=== PATIENT | male | born 1960 | race African-American/Black ===

== ENCOUNTER 2018-08-01 11:56 | Inpatient (IN) | payer OTHER ==
[2018-08-01 15:57] VITALS: BMI 21.1
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
[2018-08-01] MEDS ORDERED: IBUPROFEN 400 MG TABLET (FP) PO PRN (17:56)
[2018-08-01] MEDS ORDERED: MAGNESIUM HYDROX 2400MG/30ML ORAL SUSPENSION 30 ML CUP PO PRN (17:56)
[2018-08-01] MEDS ORDERED: LOPERAMIDE HCL 2 MG CAPSULE PO PRN (17:56)
[2018-08-01] MEDS ORDERED: ACETAMINOPHEN 325 MG TABLET (FP) PO PRN (17:56)
[2018-08-01] MEDS ORDERED: MAGNESIUM CITRATE 300 ML BOTTLE PO PRN (17:56)
[2018-08-01] MEDS ORDERED: guaiFENesin/D-METHORPHAN HB 10 ML UNIT-DOSE CUPS PO PRN (17:56)
[2018-08-01] MEDS ORDERED: hydrOXYzine PAMOATE 25 MG CAPSULE (FP) PO PRN (17:56)
[2018-08-01] MEDS ORDERED: MENTHOL/PHENOL 1 EACH UD MM PRN (17:56)
[2018-08-01] MEDS ORDERED: P-EPHED 60MG/TRIPROLIDI 2.5MG TABLET PO PRN (17:56)
[2018-08-01] MEDS ORDERED: MAG HYDROX/AL HYDROX/SIMETH 30 ML UNIT-DOSE CUP PO PRN (17:56)
[2018-08-01] MEDS ORDERED: METHADONE HCL 10 MG TABLET (FOR DETOX USE ONLY) PO ONE ×2 (18:30→23:00)
[2018-08-01] MEDS: amLODIPine BESYLATE 5 MG TABLET (FP) PO SCH (18:48)
[2018-08-01] MEDS: diazePAM 5 MG TABLET PO PRN (18:49)
[2018-08-01] MEDS ORDERED: MELATONIN 5 MG TABLETS PO PRN (22:00)
[2018-08-01] MEDS: THIAMINE HCL 100 MG TABLET (FP) PO SCH (22:36)
[2018-08-01 23:13] LABS: URINE APPEARANCE SLCLOUDY; URINE BILIRUBIN NEGATIVE (<2.0 mg/dL); URINE COLOR AMBER; URINE GLUCOSE (UA) NEGATIVE (NEGATIVE); URINE KETONE NEGATIVE (NEGATIVE); URINE LEUK ESTERASE 1+ (NEGATIVE); URINE NITRITE NEGATIVE (NEGATIVE); URINE PROTEIN 2+ (NEGATIVE)
[2018-08-01 23:17] LABS: EPI CELLS RARE /HPF (FEW); URINE HYALINE CAST 2 /lpf; URINE MUCUS FEW
[2018-08-02] MEDS ORDERED: cloNIDine HCL 0.1 MG TABLET PO ONE (07:02)
--- NOTE | 2018-08-02 07:04 | PN ---
S Progress Note Note: Patient's blood pressure is B/P 169/100. Patient is asymptomatic Vital Signs Temperature 97.5 F L 08/02/18 06:15 Pulse Rate 54 L 08/02/18 06:15 Respiratory Rate 18 08/02/18 06:15 Blood Pressure 169/100 08/02/18 06:15 O2 Sat by Pulse Oximetry (%) Action: Clonidine 0.1mg tablet oral ordered
[2018-08-02] MEDS: diazePAM 5 MG TABLET PO PRN ×3 (07:16→22:07)
[2018-08-02 09:56] LABS: HEMATOCRIT 41.9 % (35.4-49); HEMOGLOBIN 13.2 GM/dL (11.7-16.9); MCH 27.1 pg (25.7-33.7); MCHC 31.5 g/dl (32.0-35.9); MEAN PLT VOLUME 10.2 fl (7.5-11.1); PLATELET COUNT 166 K/MM3 (134-434); RBC 4.87 M/mm3 (4.00-5.60); RDW 14.2 % (11.9-15.9); WHITE BLOOD COUNT 3.8 K/mm3 (4.0-10.0)
[2018-08-02] MEDS ORDERED: METHADONE HCL 10 MG TABLET (FOR DETOX USE ONLY) PO ONE (10:00)
[2018-08-02 10:21] LABS: ALBUMIN 3.4 g/dl (3.4-5.0); ALK PHOS 64 U/L (45-117); ANION GAP 7 MMOL/L (8-16); BILIRUBIN,TOTAL 0.6 mg/dL (0.2-1); BLOOD UREA NITROGEN 16 mg/dL (7-18); CALCIUM 8.6 mg/dL (8.5-10.1); CHLORIDE 102 mmol/L (98-107); CO2 33 mmol/L (21-32); GLUCOSE,RANDOM 105 mg/dL (74-106); POTASSIUM 3.7 mmol/L (3.5-5.1); SGOT/AST 34 U/L (15-37); SGPT/ALT 36 U/L (13-61); SODIUM 141 mmol/L (136-145); TOT PROT 6.6 g/dl (6.4-8.2)
[2018-08-02] MEDS: amLODIPine BESYLATE 5 MG TABLET (FP) PO SCH (11:16)
[2018-08-02] MEDS: PRENATAL VITAMINS W/ FOLIC ACID TABLET (FP) PO SCH (11:16)
[2018-08-02] MEDS: NICOTINE 7 MG/24 HOURS TOPICAL PATCH TD SCH (11:17)
--- NOTE | 2018-08-02 12:15 | PN ---
BHS COWS - Scale Resting Pulse: 0= [place] 80 or Below Sweatin= Chills/Flushing Restless Observation: 1= Difficult to Sit Still Pupil Size: 0= Normal to Room Light Bone or Joint Aches: 1= Mild Discomfort Runny Nose/ Eye Tearin= Nasal Congestion GI Upset > 30mins: 1= Stomach Cramp Tremor Observation of Outstretched Hands: 1= Tremor [place], Not Seen Yawning Observation: 0= None Anxiety or Irritability: 1=Feels Anxious/Irritable Goose Flesh Skin: 0=Smooth Skin COWS Score: 7 BHS Progress Note (SOAP) Subjective: pt states is doing well, day #2 of admission- says sleeping was difficult last night, medications are sufficient for withdrawal Sx O: Vital Signs - 24 hr 08/01/18 08/01/18 08/02/18 15:52 19:28 00:30 Temperature 98.4 F 97.8 F Pulse Rate 71 62 Respiratory 18 18 18 Rate Blood Pressure 166/96 148/90 08/02/18 08/02/18 08/02/18 03:30 06:15 07:51 Temperature 97.5 F L Pulse Rate 54 L 62 Respiratory 18 18 Rate Blood Pressure 169/100 143/87 08/02/18 10:18 Temperature 97.4 F L Pulse Rate 58 L Respiratory 16 Rate Blood Pressure 133/83 Laboratory Tests 08/01/18 08/02/18 08/02/18 21:34 07:00 07:00 WBC 3.8 L RBC 4.87 Hgb 13.2 Hct 41.9 MCV 86.0 MCH 27.1 MCHC 31.5 L RDW 14.2 Plt Count 166 MPV 10.2 Sodium 141 Potassium 3.7 Chloride 102 Carbon Dioxide 33 H Anion Gap 7 L BUN 16 Creatinine 1.0 Creat Clearance w eGFR > 60 Random Glucose 105 Calcium 8.6 Total Bilirubin 0.6 AST 34 ALT 36 Alkaline Phosphatase 64 Total Protein 6.6 Albumin 3.4 Urine Color Deana Urine Appearance Slcloudy Urine pH 5.0 Ur Specific [place] 1.030 Urine Protein 2+ H Urine Glucose (UA) Negative Urine Ketones Negative Urine Blood 1+ H Urine Nitrite Negative Urine Bilirubin Negative Urine Urobilinogen 2.0 Ur Leukocyte Esterase 1+ H Urine WBC (Auto) 11 Urine RBC (Auto) 8 Ur Epithelial Cells Rare Hyaline Casts 2 Urine Mucus Few RPR Titer 08/02/18 07:00 WBC RBC Hgb Hct MCV MCH MCHC RDW Plt Count MPV Sodium Potassium Chloride Carbon Dioxide Anion Gap BUN Creatinine Creat Clearance w eGFR Random Glucose Calcium Total Bilirubin AST ALT Alkaline Phosphatase Total Protein Albumin Urine Color Urine Appearance Urine pH Ur Specific [place] Urine Protein Urine Glucose (UA) Urine Ketones Urine Blood Urine Nitrite Urine Bilirubin Urine Urobilinogen Ur Leukocyte Esterase Urine WBC (Auto) Urine RBC (Auto) Ur Epithelial Cells Hyaline Casts Urine Mucus RPR Titer Nonreactive a/p: continue heroin detox protocol- pt stable and doing well
[2018-08-02] MEDS: THIAMINE HCL 100 MG TABLET (FP) PO SCH (22:07)
[2018-08-03] MEDS: diazePAM 5 MG TABLET PO PRN ×2 (09:22→22:03)
[2018-08-03] MEDS ORDERED: METHADONE HCL 5 MG TABLET (FOR DETOX USE ONLY) PO ONE (10:00)
[2018-08-03] MEDS: amLODIPine BESYLATE 5 MG TABLET (FP) PO SCH (10:21)
[2018-08-03] MEDS: NICOTINE 7 MG/24 HOURS TOPICAL PATCH TD SCH (10:22)
[2018-08-03] MEDS: PRENATAL VITAMINS W/ FOLIC ACID TABLET (FP) PO SCH (10:22)
--- NOTE | 2018-08-03 13:37 | PN ---
BHS COWS - Scale Resting Pulse: 1= [place] 81-100 Sweatin= Chills/Flushing Restless Observation: 3= Extraneous Movement Pupil Size: 0= Normal to Room Light Bone or Joint Aches: 1= Mild Discomfort Runny Nose/ Eye Tearin= None GI Upset > 30mins: 1= Stomach Cramp Tremor Observation of Outstretched Hands: 2= Slight Tremor Visible Yawning Observation: 0= None Anxiety or Irritability: 1=Feels Anxious/Irritable Goose Flesh Skin: 0=Smooth Skin COWS Score: 10 BHS Progress Note (SOAP) Subjective: Sweating, chills Objective: 08/03/18 13:35 Last Vital Signs Temp Pulse Resp BP Pulse Ox 97.0 F L 84 18 138/80 08/03/18 09:09 08/03/18 09:09 08/03/18 09:09 08/03/18 09:09 Laboratory Tests 08/01/18 08/02/18 08/02/18 21:34 07:00 07:00 WBC 3.8 L RBC 4.87 Hgb 13.2 Hct 41.9 MCV 86.0 MCH 27.1 MCHC 31.5 L RDW 14.2 Plt Count 166 MPV 10.2 Sodium 141 Potassium 3.7 Chloride 102 Carbon Dioxide 33 H Anion Gap 7 L BUN 16 Creatinine 1.0 Creat Clearance w eGFR > 60 Random Glucose 105 Calcium 8.6 Total Bilirubin 0.6 AST 34 ALT 36 Alkaline Phosphatase 64 Total Protein 6.6 Albumin 3.4 Urine Color Deana Urine Appearance Slcloudy Urine pH 5.0 Ur Specific [place] 1.030 Urine Protein 2+ H Urine Glucose (UA) Negative Urine Ketones Negative Urine Blood 1+ H Urine Nitrite Negative Urine Bilirubin Negative Urine Urobilinogen 2.0 Ur Leukocyte Esterase 1+ H Urine WBC (Auto) 11 Urine RBC (Auto) 8 Ur Epithelial Cells Rare Hyaline Casts 2 Urine Mucus Few RPR Titer 08/02/18 07:00 WBC RBC Hgb Hct MCV MCH MCHC RDW Plt Count MPV Sodium Potassium Chloride Carbon Dioxide Anion Gap BUN Creatinine Creat Clearance w eGFR Random Glucose Calcium Total Bilirubin AST ALT Alkaline Phosphatase Total Protein Albumin Urine Color Urine Appearance Urine pH Ur Specific [place] Urine Protein Urine Glucose (UA) Urine Ketones Urine Blood Urine Nitrite Urine Bilirubin Urine Urobilinogen Ur Leukocyte Esterase Urine WBC (Auto) Urine RBC (Auto) Ur Epithelial Cells Hyaline Casts Urine Mucus RPR Titer Nonreactive Labs reviewed: abnormal UA Assessment: 08/03/18 13:36 Withdrawal symptoms Abnormal UA noted Plan: Continue detox Abnormal UA: encouraged PO water intake, repeat UA
[2018-08-03] MEDS: THIAMINE HCL 100 MG TABLET (FP) PO SCH (22:03)
[2018-08-03 23:26] LABS: URINE APPEARANCE TURBID; URINE BILIRUBIN NEGATIVE (<2.0 mg/dL); URINE COLOR AMBER; URINE GLUCOSE (UA) NEGATIVE (NEGATIVE); URINE KETONE NEGATIVE (NEGATIVE); URINE LEUK ESTERASE NEGATIVE (NEGATIVE); URINE NITRITE NEGATIVE (NEGATIVE); URINE PROTEIN NEGATIVE (NEGATIVE)
[2018-08-04] MEDS ORDERED: METHADONE HCL 5 MG TABLET (FOR DETOX USE ONLY) PO ONE (10:00)
[2018-08-04] MEDS: PRENATAL VITAMINS W/ FOLIC ACID TABLET (FP) PO SCH (10:23)
[2018-08-04] MEDS: diazePAM 5 MG TABLET PO PRN ×2 (10:23→17:34)
[2018-08-04] MEDS: amLODIPine BESYLATE 5 MG TABLET (FP) PO SCH (10:23)
[2018-08-04] MEDS: NICOTINE 7 MG/24 HOURS TOPICAL PATCH TD SCH (10:25)
--- NOTE | 2018-08-04 16:08 | PN ---
BHS Progress Note (SOAP) Subjective: Tremor, sweating, interrupted sleep Objective: 08/04/18 16:06 Last Vital Signs Temp Pulse Resp BP Pulse Ox 97.3 F L 86 18 143/77 08/04/18 14:56 08/04/18 14:56 08/04/18 14:56 08/04/18 14:56 Laboratory Tests 08/01/18 08/02/18 08/02/18 21:34 07:00 07:00 WBC 3.8 L RBC 4.87 Hgb 13.2 Hct 41.9 MCV 86.0 MCH 27.1 MCHC 31.5 L RDW 14.2 Plt Count 166 MPV 10.2 Sodium 141 Potassium 3.7 Chloride 102 Carbon Dioxide 33 H Anion Gap 7 L BUN 16 Creatinine 1.0 Creat Clearance w eGFR > 60 Random Glucose 105 Calcium 8.6 Total Bilirubin 0.6 AST 34 ALT 36 Alkaline Phosphatase 64 Total Protein 6.6 Albumin 3.4 Urine Color Deana Urine Appearance Slcloudy Urine pH 5.0 Ur Specific [place] 1.030 Urine Protein 2+ H Urine Glucose (UA) Negative Urine Ketones Negative Urine Blood 1+ H Urine Nitrite Negative Urine Bilirubin Negative Urine Urobilinogen 2.0 Ur Leukocyte Esterase 1+ H Urine WBC (Auto) 11 Urine RBC (Auto) 8 Ur Epithelial Cells Rare Hyaline Casts 2 Urine Mucus Few RPR Titer 08/02/18 08/03/18 07:00 23:10 WBC RBC Hgb Hct MCV MCH MCHC RDW Plt Count MPV Sodium Potassium Chloride Carbon Dioxide Anion Gap BUN Creatinine Creat Clearance w eGFR Random Glucose Calcium Total Bilirubin AST ALT Alkaline Phosphatase Total Protein Albumin Urine Color Deana Urine Appearance Turbid Urine pH 5.0 Ur Specific [place] 1.025 Urine Protein Negative Urine Glucose (UA) Negative Urine Ketones Negative Urine Blood Negative Urine Nitrite Negative Urine Bilirubin Negative Urine Urobilinogen 2.0 Ur Leukocyte Esterase Negative Urine WBC (Auto) Urine RBC (Auto) Ur Epithelial Cells Hyaline Casts Urine Mucus RPR Titer Nonreactive Labs reviewed Assessment: 08/04/18 16:07 Withdrawal symptoms Plan: Continue detox Encouraged PO water intake
[2018-08-04] MEDS ORDERED: ALBUTEROL SO4 0.083% IH SOL 2.5 MG/3 ML VIAL.NEB. NEB PRN (18:17)
--- NOTE | 2018-08-04 18:54 | PN ---
S Progress Note (SOAP) Subjective: asked by RN to evaluate this 57 y.o. male w/opioid dependence with sudden complaint of weakness and shortness of breath , denies chest pain at this time , states he " feels funny " , and the symptoms begantoday . Denies prior cardiac history . Current meds : norvasc for HTn BP 164/90 P 70 100% RA . Objective: 08/04/18 18:50 wnwd , mild distress Resp : no accessory muscle use , lungs CTA b/l , no wheezing/ rales/ rhonchi CV : RRR S1 S2 no m/r/t 08/04/18 19:20 Vital Signs - 24 hr 08/03/18 08/04/18 08/04/18 20:27 00:30 03:30 Temperature 98.7 F Pulse Rate 78 Respiratory 18 20 18 Rate Blood Pressure 114/62 08/04/18 08/04/18 08/04/18 06:27 06:30 09:11 Temperature 96.4 F L 97.6 F Pulse Rate 56 L 65 Respiratory 18 18 18 Rate Blood Pressure 144/80 138/82 08/04/18 08/04/18 14:56 18:32 Temperature 97.3 F L 97.3 F L Pulse Rate 86 70 Respiratory 18 18 Rate Blood Pressure 143/77 147/86 Assessment: 08/04/18 18:51 Dyspnea - Albuterol x 1 treatment , minimal symptomatic improvement. EKG - abnormal , T wave abnormality , inferior wall ischemia , NSR , left atrial enlargement. Plan: refer pt to [facility] ED for further evaluation and treatment . Patient aware and in agreement. report given to Dr Gallardo nursing staff aware , called for transportation . Patient left via EMS
[2018-08-04] MEDS: THIAMINE HCL 100 MG TABLET (FP) PO SCH (22:37)
[2018-08-05] MEDS ORDERED: METHADONE HCL 10 MG TABLET (FOR DETOX USE ONLY) PO ONE (10:00)
[2018-08-05] MEDS: amLODIPine BESYLATE 5 MG TABLET (FP) PO SCH (10:14)
[2018-08-05] MEDS: PRENATAL VITAMINS W/ FOLIC ACID TABLET (FP) PO SCH (10:14)
[2018-08-05] MEDS: NICOTINE 7 MG/24 HOURS TOPICAL PATCH TD SCH (10:14)
--- NOTE | 2018-08-05 11:39 | EKG ---
Test Reason : Blood Pressure : / mmHG Vent. Rate : 073 BPM Atrial Rate : 073 BPM P-R Int : 138 ms QRS Dur : 100 ms QT Int : 382 ms P-R-T Axes : 083 075 -81 degrees QTc Int : 420 ms NORMAL SINUS RHYTHM VENTRICULAR PRE-EXCITATION, WPW PATTERN TYPE B ABNORMAL ECG NO PREVIOUS ECGS AVAILABLE Confirmed by MIRACLE STAPLES MD ([id number]) on 08/05/2018 11:38:33 AM Referred By: Confirmed By:MIRACLE STAPLES MD
--- NOTE | 2018-08-05 12:29 | PN ---
[facility] Progress Note Note: PATIENT RETURNED FROM [facility] TO [address] [place] [address] THIS MORNING AFTER BEING TRANSFERRED FOR SOB. PATIENT EKG REVIEWED BY [employer] SUPERVISOR AT [facility] AND SHOWS POSSIBLE WPW SYNDROME. 2 SETS OF TROPONIN LEVEL NEGATIVE. PATIENT MONITORED AT [facility] THEN CLEARED TO BE D/C BACK TO [facility]. PATIENT EVALUATED AT BEDSIDE AND DENIES SOB , CHEST PAIN, DIZZINESS AND N/V. Vital Signs Temperature 97.8 F 08/05/18 09:40 Pulse Rate 68 08/05/18 09:40 Respiratory Rate 18 08/05/18 09:40 Blood Pressure 171/96 H 08/05/18 09:40 O2 Sat by Pulse Oximetry (%) Vital Signs Temperature 97.8 F 08/05/18 09:40 Pulse Rate 68 08/05/18 09:40 Respiratory Rate 18 08/05/18 09:40 Blood Pressure 171/96 H 08/05/18 09:40 O2 Sat by Pulse Oximetry (%) Laboratory Tests 08/01/18 08/02/18 08/02/18 21:34 07:00 07:00 WBC 3.8 L RBC 4.87 Hgb 13.2 Hct 41.9 MCV 86.0 MCH 27.1 MCHC 31.5 L RDW 14.2 Plt Count 166 MPV 10.2 Sodium 141 Potassium 3.7 Chloride 102 Carbon Dioxide 33 H Anion Gap 7 L BUN 16 Creatinine 1.0 Creat Clearance w eGFR > 60 Random Glucose 105 Calcium 8.6 Total Bilirubin 0.6 AST 34 ALT 36 Alkaline Phosphatase 64 Total Protein 6.6 Albumin 3.4 Urine Color Deana Urine Appearance Slcloudy Urine pH 5.0 Ur Specific Nenana 1.030 Urine Protein 2+ H Urine Glucose (UA) Negative Urine Ketones Negative Urine Blood 1+ H Urine Nitrite Negative Urine Bilirubin Negative Urine Urobilinogen 2.0 Ur Leukocyte Esterase 1+ H Urine WBC (Auto) 11 Urine RBC (Auto) 8 Ur Epithelial Cells Rare Hyaline Casts 2 Urine Mucus Few RPR Titer 08/02/18 08/03/18 07:00 23:10 WBC RBC Hgb Hct MCV MCH MCHC RDW Plt Count MPV Sodium Potassium Chloride Carbon Dioxide Anion Gap BUN Creatinine Creat Clearance w eGFR Random Glucose Calcium Total Bilirubin AST ALT Alkaline Phosphatase Total Protein Albumin Urine Color Deana Urine Appearance Turbid Urine pH 5.0 Ur Specific Nenana 1.025 Urine Protein Negative Urine Glucose (UA) Negative Urine Ketones Negative Urine Blood Negative Urine Nitrite Negative Urine Bilirubin Negative Urine Urobilinogen 2.0 Ur Leukocyte Esterase Negative Urine WBC (Auto) Urine RBC (Auto) Ur Epithelial Cells Hyaline Casts Urine Mucus RPR Titer Nonreactive PE: ALERT AND ORIENTED X 3 SKIN WARM AND DRY CAR S1S2 RESP CTA BL EXT FULL ROM, NO EDEMA MILDLY ANXIOUS AMB AD ELKE A/P: WITHDRAWAL SX HX OF HTN POSSIBLE WPW CONTINUE DETOX ENCOURAGE ORAL FLUIDS PATIENT ADVISED TO FOLLOW UP WITH PCP WITH 72 HOURS OF D/C FOR ONGOING TREATMENT OF CHRONIC ILLNESSES CONTINUE TO MONITOR CLINICALLY NORVASC ONGOING FOR BP MANAGEMENT
[2018-08-05 13:53] VITALS: TEMP 97.1
[2018-08-05 15:38] VITALS: BP 148/80; PULSE 68
--- NOTE | 2018-08-05 15:51 | DS ---
[facility] Detox Discharge Summary Admission Date: 08/01/18 Discharge Date: 08/05/18 - History Present History: Opioid Dependence - Physical Exam Results Vital Signs: Vital Signs Temperature 97.1 F L 08/05/18 13:51 Pulse Rate 68 08/05/18 15:38 Respiratory Rate 18 08/05/18 13:51 Blood Pressure 148/80 08/05/18 15:38 O2 Sat by Pulse Oximetry (%) - Medication Discharge Medications: Ambulatory Orders Ibuprofen [Motrin -] 400 mg PO QID PRN 08/01/18 Acetaminophen [Tylenol] 650 mg PO Q4H PRN 08/04/18 Albuterol 0.083% Nebulizer Brittany [Ventolin 0.083%] 1 neb NEB QID PRN 08/04/18 Methadone (Detox) [Dolophine -] 10 mg PO ASDIR 08/04/18 Multivitamins [Tab-A-Vit -] 1 tab PO DAILY 08/04/18 Nicotine Patch [Nicoderm Patch -] 1 patch TD DAILY 08/04/18 Thiamine HCl [B-1] 100 mg PO HS 08/04/18 Amlodipine Besylate [Norvasc -] 5 mg PO DAILY 14 Days #14 tablet 08/05/18 - Diagnosis (1) Opioid dependence with withdrawal Current Visit: Yes Status: Acute - AMA Did Patient Leave Against Medical Advice: Yes
--- NOTE | 2018-08-05 15:57 | PN ---
[facility] Progress Note Note: NOTIFIED BY RN THAT PATIENT REQUESTED TO SIGN OUT AMA HE HAS A BUS [place]. PATIENT DID NOT WANT TO SPEAK TO PROVIDER AND PROCEEDED WITH SIGNING OUT AMA. PATIENT MEDICALLY STABLE AND NO SI/HI REPORTED. PATIENT ENCOURAGED BY STAFF TO ATTEND GROUP MEETINGS TO PREVENT RELAPSE AND TO FOLLOW UP WITH PCP WITHIN 72 HOURS OF D/C.
[2018-08-06] MEDS ORDERED: METHADONE HCL 5 MG TABLET (FOR DETOX USE ONLY) PO ONE (06:00)
--- NOTE | 2018-10-25 11:43 | EKG ---
Test Reason : Blood Pressure : / mmHG Vent. Rate : 073 BPM Atrial Rate : 073 BPM P-R Int : 132 ms QRS Dur : 096 ms QT Int : 382 ms P-R-T Axes : 076 070 266 degrees QTc Int : 420 ms NORMAL SINUS RHYTHM POSSIBLE LEFT ATRIAL ENLARGEMENT T WAVE ABNORMALITY, CONSIDER INFEROLATERAL ISCHEMIA ABNORMAL ECG NO PREVIOUS ECGS AVAILABLE Confirmed by Hardik Goodman MD ([id number]) on 10/25/2018 11:43:11 AM Referred By: Confirmed By:Hardik Goodman MD
== END 2018-08-05 16:10 | disposition left against medical advice (07) | DRG 770 ==
LOC: YASAS 11:56 → Y3N 18:06
PROC: HZ2ZZZZ Detoxification Services for Substance Abuse Treatment (ICD-10-PCS; principal; 2018-08-01)
DX: F11.23 Opioid dependence with withdrawal (principal); F14.20 Cocaine dependence, uncomplicated; F17.210 Nicotine dependence, cigarettes, uncomplicated; F20.0 Paranoid schizophrenia; I10 Essential (primary) hypertension; R82.90 Unspecified abnormal findings in urine; Z96.652 Presence of left artificial knee joint
CPT/HCPCS: 36415; 80053; 81003; 81015; 85027; 86593; 93005; 93010; 94640; J0735

== ENCOUNTER 2018-08-04 19:34 | Emergency (ER) | payer OTHER ==
[2018-08-04 19:47] VITALS: TEMP 98.9; BMI 23.3
--- NOTE | 2018-08-04 23:07 | PDOC ---
Attending Attestation - Resident Resident Name: TieshaIftikhar - ED Attending Attestation I have performed the following: I have examined & evaluated the patient, The case was reviewed & discussed with the resident, I agree w/resident's findings & plan, Exceptions are as noted - HPI HPI: 08/04/18 23:06 57yo M hx HTN, asthma, PSA (recent relapse on heroin, has been at [facility] for detox for the last 4 days) presents to the ED with transient SOB that resolved en route to the ED. Pt reports SOB while at rest this afternoon at detox, states it felt like his asthma. He was given a nebulizer treatment with mild improvement but was still having SOB prompting EMS activation. Pt denies associated CP, coughing, fever, chills, diaphoresis, dizziness, LE edema. Currently pt denies any symptoms at all, feels much better and requests DC. Deneis recent headache, weakness, numbness, abd pain. Admits to heroine use 5 days ago, denies recent cocaine or etoh use although he has used in the past. - Physicial Exam PE: 08/04/18 23:21 GENERAL: Awake, alert, and fully oriented, in no acute distress HEAD: No signs of trauma EYES: PERRLA, EOMI, sclera anicteric, conjunctiva clear ENT: Auricles normal inspection, hearing grossly normal, nares patent, oropharynx clear without exudates. Moist mucosa NECK: Normal ROM, supple, no lymphadenopathy, JVD, or masses LUNGS: Breath sounds equal, clear to auscultation bilaterally. No wheezes, and no crackles. No increased WOB. HEART: Regular rate and rhythm, normal S1 and S2, no murmurs, rubs or gallops ABDOMEN: Soft, nontender, normoactive bowel sounds. No guarding, no rebound. No masses EXTREMITIES: Normal range of motion, no edema. No cords, erythema, or tenderness NEUROLOGICAL: Normal speech, cranial nerves intact, 5/5 strength in all 4 extremities, normal sensation to light touch in all 4 extremities, normal cerebellar exam, normal gait, normal tone SKIN: Warm, Dry, normal turgor, no rashes or lesions noted. - Medical Decision Making 08/04/18 23:31 57yo M hx HTN, PSA, asthma presents to the ED with resolved SOB. Vitals unremarkable. Exam unremarkable. EKG with new TWI, also short AL interval, possible WPW? Pt also with old ST depressions inferiorly. DDx includes asthma vs ACS vs PE vs PNA. Pt refusing all work up as he states he feels better and knows nothing is wrong with him. Discussed with pt my concerns re EKG and SOB, he expresses understanding but wants to leave as he feels better. The patient is clinically sober, free from distracting injury, appears to have intact insight and judgment and reason and in my opinion has the capacity to make decisions. The patient presents with SOB. I have explained that I am concerned that this may represent an arrhythmia, heart attack, PE; he has verbalized an understanding of my concerns. I have discussed the need for labs , XR, observation to get more information about potential causes of the patient s SOB. I have told the patient that if they leave and have SOB, they could get much worse, could become critically ill, and could possibly become disabled or . The patient is not willing to undergo a medical work up. He is unwilling to stay overnight for monitoring. He is refusing any further care and is leaving against medical advice. I am unable to convince the patient to stay, I have asked them to return as soon as possible to complete their evaluation. Pt is aware that he can not return to [facility] unless he is medically cleared. I have answered all his questions. 08/05/18 00:09 Pt unable to get a ride to leave the ED. States his belongings are back at [facility] and he has no way of getting there. 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 As such, pt is now agreeable to work up for his resolved SOB. Heart score 3. REmains well appearing, in NAD 08/05/18 02:02 Trop neg Labs CXR pending Trop 2 pending at 4am Signed out to overnight attending Heart Score/ECG Review - History History: Slightly suspicious - Electrocardiogram EKG: Non specific repolarization disturbance - Age Age: 45-65 - Risk Factors Risk Factors Heart Score: Yes Hx Hypertension Based on the list above the patient has:: 1-2 risk factors - Troponin Troponin: </= normal limit - Score Heart Score - Total: 3 #1 08/04/18 23:27 Twelve-lead EKG was performed and reviewed by me. Normal sinus rhythm, rate 73. Normal axis. T-wave inversions and sub-millimeter ST depressions inferiorly. T wave inversions in V4 to V6. Short AL interval. When compared to EKG done earlier today at [facility], no significant changes. When compared to EKG from June 2015, T-wave inversions in V4 to V6 are new
--- NOTE | 2018-08-04 23:17 | PDOC ---
History of Present Illness - General Chief Complaint: Shortness of Breath Stated Complaint: SHORTNESS OF BREATH Time Seen by Provider: 08/04/18 21:39 History Source: Patient Exam Limitations: No Limitations - History of Present Illness Initial Comments: 08/05/18 04:29 57 yo male K[facility] from [facility] Det[facility] for Heroin presents to the ED with 1 day of SOB. Pt states SOB has resolved upon questioning and denies any current complaints. Pt states he wants to go back to detox. Denies CP, palpitations, SOB , abdominal pain, F/C/N/V. Past History - Past Medical History Allergies/Adverse Reactions: Allergies Allergy/AdvReac Type Severity Reaction Status Date / Time No Known Allergies Allergy Verified 08/01/18 17:01 Home Medications: Ambulatory Orders Ibuprofen [Motrin -] 400 mg PO QID PRN 08/01/18 Acetaminophen [Tylenol] 650 mg PO Q4H PRN 08/04/18 Albuterol 0.083% Nebulizer Brittany [Ventolin 0.083%] 1 neb NEB QID PRN 08/04/18 Amlodipine Besylate [Norvasc -] 5 mg PO DAILY 08/04/18 Methadone (Detox) [Dolophine -] 10 mg PO ASDIR 08/04/18 Multivitamins [Tab-A-Vit -] 1 tab PO DAILY 08/04/18 Nicotine Patch [Nicoderm Patch -] 1 patch TD DAILY 08/04/18 Thiamine HCl [B-1] 100 mg PO HS 08/04/18 Anemia: No Asthma: No Cancer: No Cardiac Disorders: No CVA: No COPD: No CHF: No Dementia: No Diabetes: No GI Disorders: No Disorders: No HTN: Yes Hypercholesterolemia: No Kidney Stones: No Liver Disease: No Seizures: No Thyroid Disease: No - Surgical History Abdominal Surgery: No Appendectomy: No Cardiac Surgery: No Cholecystectomy: No Lung Surgery: No Neurologic Surgery: No Orthopedic Surgery: Yes (lower back and right leg fx, L knee replacement) - Reproductive History Testicular Surgery: No - Suicide/Smoking/Psychosocial Hx Smoking History: Unknown if ever smoked Have you smoked in the past 12 months: No Number of Cigarettes Smoked Daily: 3 Information on smoking cessation initiated: No 'Breaking Loose' booklet given: 08/01/18 Hx Alcohol Use: No Drug/Substance Use Hx: Yes Substance Use Type: Alcohol (OASSIONAL SOCIAL DRINK), Cocaine, Heroin Hx Substance Use Treatment: Yes Review of Systems - Review of Systems Constitutional: No: Chills, Fever Respiratory: No: Shortness of Breath (resolved) Cardiac (ROS): No: Chest Pain ABD/GI: No: Constipated, Diarrhea, Nausea, Vomiting : No: Burning, Dysuria Musculoskeletal: No: Back Pain Neurological: No: Weakness *Physical Exam - Vital Signs Last Vital Signs Temp Pulse Resp BP Pulse Ox 98.9 F 72 18 150/78 99 08/04/18 19:43 08/04/18 19:43 08/04/18 19:43 08/04/18 19:43 08/04/18 19:43 - Physical Exam General Appearance: Yes: Nourished, Appropriately Dressed. No: Apparent Distress HEENT: positive: EOMI, LIAM Respiratory/Chest: positive: Lungs Clear, Normal Breath Sounds. negative: Respiratory Distress, Crackles, Rales, Rhonchi, Wheezing Cardiovascular: positive: Regular Rhythm, Regular Rate, S1, S2. negative: Edema , JVD, Murmur Vascular Pulses: Dorsalis-Pedis (R): 3+, Doralis-Pedis (L): 3+ Gastrointestinal/Abdominal: positive: Normal Bowel Sounds. negative: Distended , Guarding, Rebound, Tenderness Extremity: positive: Normal Capillary Refill Integumentary: positive: Normal Color, Dry, Warm Neurologic: positive: Fully Oriented, Alert, Normal Mood/Affect, Normal Response Moderate Sedation - Procedure Monitoring Vital Signs: Procedure Monitoring Vital Signs Temperature 98.9 F 08/04/18 19:43 Pulse Rate 72 08/04/18 19:43 Respiratory Rate 18 08/04/18 19:43 Blood Pressure 150/78 08/04/18 19:43 O2 Sat by Pulse Oximetry (%) 99 08/04/18 19:43 ED Treatment Course - LABORATORY CBC & Chemistry Diagram: 08/05/18 01:03 08/05/18 01:03 Medical Decision Making - Medical Decision Making 08/04/18 23:09 spoke with Quang at Detox ext [phone] Pt would like to sign out AMA Pt unable to get transportation back to [facility] due to signing out AMA and now agrees to be worked up. EKG shows possible WPW. Pt denies hx of arrhythmia and denies CP, palpitations Pt resting comfortably throughout entire hospital stay. 1st trop negative, 2nd trop pending. Will reassess and DC back to Detox if no further concerns with PCP follow up. 08/05/18 06:14 2nd trop negative. Pt has no current complaints and understands the discharge plan. *DC/Admit/Observation/Transfer Diagnosis at time of Disposition: SOB (shortness of breath) - Discharge Dispostion Disposition: TRANSFER ACUTE CARE/OTHER HOSP Condition at time of disposition: Stable Decision to Admit order: No - Referrals - Patient Instructions Printed Discharge Instructions: DI for Shortness of Breath Additional Instructions: Please make appointment with your Primary Care Doctor within the next 24-48 hours. Return to the Emergency Room for new or worsening symptoms including but not limited to: continued shortness of breath, high fevers, chest pain, palpitations , lethargy or weakness. You will be transported back to [facility] to continue with your Detox program and do not require any medication at this time. Thank you - Post Discharge Activity
[2018-08-05 01:15] LABS: BASO % 1.3 % (0-2.0); EOS % 5.6 % (0-4.5); HEMATOCRIT 33.1 % (35.4-49); HEMOGLOBIN 11.2 GM/dL (11.7-16.9); LYMPH % 42.4 % (8-40); MCH 28.8 pg (25.7-33.7); MCHC 33.8 g/dl (32.0-35.9); MEAN CELL VOLUME 85.2 fl (80-96); MEAN PLT VOLUME 9.4 fl (7.5-11.1); MONO % 16.9 % (3.8-10.2); NEUT % 33.8 % (42.8-82.8); PLATELET COUNT 144 K/MM3 (134-434); RBC 3.89 M/mm3 (4.00-5.60); RDW 14.1 % (11.9-15.9); WHITE BLOOD COUNT 3.1 K/mm3 (4.0-10.0)
[2018-08-05 01:45] LABS: ALBUMIN 2.8 g/dl (3.4-5.0); ALK PHOS 70 U/L (45-117); ANION GAP 5 MMOL/L (8-16); BILIRUBIN,TOTAL 0.1 mg/dL (0.2-1); BLOOD UREA NITROGEN 22 mg/dL (7-18); CALCIUM 7.9 mg/dL (8.5-10.1); CHLORIDE 103 mmol/L (98-107); CO2 32 mmol/L (21-32); CREATININE 0.8 mg/dL (0.55-1.3); GLUCOSE,RANDOM 98 mg/dL (74-106); POTASSIUM 3.8 mmol/L (3.5-5.1); SGOT/AST 26 U/L (15-37); SGPT/ALT 28 U/L (13-61); SODIUM 140 mmol/L (136-145); TOT PROT 5.6 g/dl (6.4-8.2)
[2018-08-05 06:29] VITALS: BP 153/8; PULSE 64
--- NOTE | 2018-08-05 11:43 | EKG ---
Test Reason : Blood Pressure : / mmHG Vent. Rate : 066 BPM Atrial Rate : 066 BPM P-R Int : 136 ms QRS Dur : 100 ms QT Int : 450 ms P-R-T Axes : 085 077 043 degrees QTc Int : 471 ms NORMAL SINUS RHYTHM VENTRICULAR PRE-EXCITATION, WPW PATTERN TYPE B ABNORMAL ECG NO PREVIOUS ECGS AVAILABLE Confirmed by MIRACLE STAPLES MD ([id number]) on 08/05/2018 11:43:16 AM Referred By: Confirmed By:MIRACLE STAPLES MD
== END 2018-08-05 09:15 | disposition short-term general hospital (02) ==
LOC: JER 19:34
DX: R06.02 Shortness of breath (principal); I10 Essential (primary) hypertension
CPT/HCPCS: 36415; 71046-TC-FY; 80053; 82550; 82553; 84484; 85025; 93005; 93010; 99283-25

== ENCOUNTER 2019-06-05 12:28 | Inpatient (IN) | payer OTHER ==
[2019-06-05 17:30] VITALS: BMI 21.8
--- NOTE | 2019-06-05 18:43 | HP ---
COWS - Scale Resting Pulse: 0= [place] 80 or Below Sweatin=Flushed/Facial Moisture Restless Observation: 1= Difficult to Sit Still Pupil Size: 1= Pupils >than Normal Bone or Joint Aches: 1= Mild Discomfort Runny Nose/ Eye Tearin= Runny Nose/Eyes GI Upset > 30mins: 0= None Tremor Observation: 1= Tremor Willis, Not Seen Yawning Observation: 2= >3x During Session Anxiety or Irritability: 2=Irritable/Anxious Goose Flesh Skin: 0=Smooth Skin COWS Score: 12 CIWA Score - Admission Criteria OASAS Guidelines: Admission for Medically Managed Detox: Requires at least one of the followin. CIWA greater than 12 2. Seizures within the past 24 hours 3. Delirium tremens within the past 24 hours 4. Hallucinations within the past 24 hours 5. Acute intervention needed for co occurring medical disorder 6. Acute intervention needed for co occurring psychiatric disorder 7. Severe withdrawal that cannot be handled at a lower level of care (continued vomiting, continued diarrhea, abnormal vital signs) requiring intravenous medication and/or fluids 8. Admitting History and Physical - Smoking History Smoking history: Unknown if ever smoked Have you smoked in the past 12 months: No Aproximately how many cigarettes per day: 3 - Alcohol/Substance Use Hx Alcohol Use: No Admission ROS [facility] Chief Complaint: "detox from [facility], alcohol, cocaine" Allergies/Adverse Reactions: Allergies Allergy/AdvReac Type Severity Reaction Status Date / Time No Known Allergies Allergy Verified 06/05/19 17:13 History of Present Illness: 58 year old male with a past medical history of back and knee problems presents for heroin detox. Last here in detox 1 year ago. Would like to do both short and superintendent container terminal rehab. States he wants to go to [place] for detention rehab. Heroin: 10 bags per day, sniffs heroin. Never injected. Started using around 25 years ago (in his 30s). Never had a seizure. Has no narcan kit. Alcohol: little bit of hennesy now and then, last drank yesterday; never withdrawn from alcohol. 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 Family: no family history of any medical illness - Ebola screening Have you traveled outside of the country in the last 21 days: No Have you had contact with anyone from an Ebola affected area: No Do you have a fever: No - Review of Systems Constitutional: No Symptoms Reported EENT: reports: No Symptoms Reported Respiratory: reports: No Symptoms reported Cardiac: reports: No Symptoms Reported GI: reports: No Symptoms Reported : reports: No Symptoms Reported Musculoskeletal: reports: No Symptoms Reported Integumentary: reports: No Symptoms Reported Neuro: reports: No Symptoms reported Endocrine: reports: No Symptoms Reported Hematology: reports: Anemia Psychiatric: reports: Judgement Intact, Mood/Affect Appropiate, Orientated x3, Agitated, Anxious Patient History - Patient Medical History Hx Anemia: No Hx Asthma: No Hx Chronic Obstructive Pulmonary Disease (COPD): No Hx Cancer: No Hx Cardiac Disorders: No Hx Congestive Heart Failure: No Hx Hypertension: Yes Hx Hypercholesterolemia: No Hx Pacemaker: No HX Cerebrovascular Accident: No Hx Seizures: No Hx Dementia: No Hx Diabetes: No Hx Gastrointestinal Disorders: No Hx Liver Disease: No Hx Genitourinary Disorders: No Hx Sexually Transmitted Disorders: No Hx Renal Disease (ESRD): No Hx Thyroid Disease: No Hx Human Immunodeficiency Virus (HIV): No (NEGATIVE HX) Hx Hepatitis C: No Hx Depression: Yes Hx Suicide Attempt: No Hx Bipolar Disorder: No Hx Schizophrenia: Yes (paranoid schizophrenia) - Patient Surgical History Past Surgical History: Yes Hx Neurologic Surgery: No Hx Cataract Extraction: No Hx Cardiac Surgery: No Hx Lung Surgery: No Hx Breast Surgery: No Hx Breast Biopsy: No Hx Abdominal Surgery: No Hx Appendectomy: No Hx Cholecystectomy: No Hx Genitourinary Surgery: No Hx Section: No Hx Orthopedic Surgery: Yes (lower back and right leg fx, L knee replacement) Hx Hysterectomy: No Other Surgical History: left knee replacement Anesthesia Reaction: No - PPD History Date: 08/03/18 Results: 0 mm - Smoking Cessation Smoking history: Unknown if ever smoked Have you smoked in the past 12 months: No Aproximately how many cigarettes per day: 3 Hx Chewing Tobacco Use: No - Substances abused Alcohol Substance route: Oral Frequency: Daily Amount used: 2 40oz beers Age of first use: 33 Date of last use: 06/03/19 Heroin Substance route: Inhalation Frequency: Daily Amount used: 8bags Age of first use: 42 Date of last use: 06/05/19 Cocaine Substance route: Inhalation Frequency: 3-6 times per week Amount used: $80 Age of first use: 41 Date of last use: 06/05/19 Admission Physical Exam BHS - Vital Signs Vital Signs: Vital Signs - 24 hr 06/05/19 17:25 Temperature 97.9 F Pulse Rate 57 L Respiratory 16 Rate Blood Pressure 155/85 Breathalyzer - Breathalyzer Breathalyzer: 0 Urine Drug Screen - Test Device Lot number: [id number] Expiration date: 01/27/21 - Control Is test valid?: Yes - Results Drug screen NEGATIVE: No Urine drug screen results: THC-Marijuana, DARIO-Cocaine, FEN-Fentanyl, MOP-Opiates Inpatient Rehab Admission - Rehab Decision to Admit Inpatient rehab admission?: No
--- NOTE | 2019-06-05 18:53 | PN ---
Teaching Attending Note Name of Resident: William Hill ATTENDING PHYSICIAN STATEMENT I saw and evaluated the patient. I reviewed the resident's note and discussed the case with the resident. I agree with the resident's findings and plan as documented. SUBJECTIVE: 58yo with h/o HTN and L knee replacement and back surgery, here for detox from heroin-10 bags, no h/o OD. Uses alcohol and cocaine occasionally. no h/o seizures. OBJECTIVE: Vital Signs - 24 hr 06/05/19 17:25 Temperature 97.9 F Pulse Rate 57 L Respiratory 16 Rate Blood Pressure 155/85 ASSESSMENT AND PLAN: Admit for heroin use disorder-methadone detox
[2019-06-05] MEDS ORDERED: MAGNESIUM HYDROX 2400MG/30ML ORAL SUSPENSION 30 ML CUP PO PRN (19:00)
[2019-06-05] MEDS ORDERED: ACETAMINOPHEN 325 MG TABLET (FP) PO PRN ×2 (19:00)
[2019-06-05] MEDS ORDERED: BISMUTH SUBSALICYLATE 524 MG/30 ML UD PO PRN (19:00)
[2019-06-05] MEDS ORDERED: METHADONE HCL 10 MG TABLET (FOR DETOX USE ONLY) PO ONE (19:00)
[2019-06-05] MEDS ORDERED: MENTHOL/PHENOL 1 EACH UD MM PRN (19:00)
[2019-06-05] MEDS ORDERED: MAG HYDROX/AL HYDROX/SIMETH 30 ML UNIT-DOSE CUP PO PRN (19:00)
[2019-06-05] MEDS ORDERED: cloNIDine HCL 0.1 MG TABLET PO PRN (19:00)
[2019-06-05] MEDS ORDERED: hydrOXYzine PAMOATE 25 MG CAPSULE (FP) PO PRN (19:00)
[2019-06-05] MEDS ORDERED: MAGNESIUM CITRATE 300 ML BOTTLE PO PRN (19:00)
[2019-06-05] MEDS: NICOTINE 21 MG/24 HOURS TOPICAL PATCH TD SCH (20:28)
[2019-06-05] MEDS: GABAPENTIN 100 MG CAPSULE (FP) PO SCH (22:26)
[2019-06-05] MEDS: THIAMINE HCL 100 MG TABLET (FP) PO SCH (22:26)
[2019-06-06] MEDS: GABAPENTIN 100 MG CAPSULE (FP) PO SCH ×3 (05:33→21:13)
[2019-06-06] MEDS ORDERED: METHADONE HCL 10 MG TABLET (FOR DETOX USE ONLY) ONE (08:54)
[2019-06-06] MEDS ORDERED: METHADONE HCL 5 MG TABLET (FOR DETOX USE ONLY) ONE (08:55)
[2019-06-06] MEDS ORDERED: METHADONE (DETOX) 20 MG, METHADONE (DETOX) 5 MG PO ONE (10:00)
[2019-06-06 10:05] LABS: ALBUMIN 3.4 g/dl (3.4-5.0); BILIRUBIN,TOTAL 0.5 mg/dL (0.2-1); BLOOD UREA NITROGEN 18.6 mg/dL (7-18); CALCIUM 8.6 mg/dL (8.5-10.1); TOT PROT 6.1 g/dl (6.4-8.2)
[2019-06-06] MEDS: NICOTINE 21 MG/24 HOURS TOPICAL PATCH TD SCH (10:08)
[2019-06-06] MEDS: HYDROCHLOROTHIAZIDE 25 MG TABLET (FP) PO SCH (10:08)
[2019-06-06] MEDS: PRENATAL VITAMINS W/ FOLIC ACID TABLET (FP) PO SCH (10:08)
[2019-06-06] MEDS: MULTIVITAMINS (DAILY MVI) TABLET (FP) PO SCH (10:12)
[2019-06-06 10:25] LABS: MCH 27.9 pg (25.7-33.7); MCHC 32.5 g/dl (32.0-35.9); MEAN CELL VOLUME 85.8 fl (80-96); PLATELET COUNT 157 K/MM3 (134-434); RBC 4.31 M/mm3 (4.00-5.60); RDW 14.8 % (11.9-15.9); WHITE BLOOD COUNT 4.7 K/mm3 (4.0-10.0)
--- NOTE | 2019-06-06 16:01 | PN ---
BHS COWS - Scale Resting Pulse: 0= [place] 80 or Below Sweatin= Chills/Flushing Restless Observation: 0= Sits Still Pupil Size: 0= Normal to Room Light Bone or Joint Aches: 1= Mild Discomfort Runny Nose/ Eye Tearin= None GI Upset > 30mins: 0= None Tremor Observation of Outstretched Hands: 2= Slight Tremor Visible Yawning Observation: 1= 1-2x During Session Anxiety or Irritability: 2=Irritable/Anxious Goose Flesh Skin: 3=Piloerection COWS Score: 10 BHS Progress Note (SOAP) Subjective: Anxious, Tremors, Sweating. Objective: PATIENT A & O X 3. IN NO ACUTE DISTRESS. 06/06/19 16:01 Vital Signs Temperature 97.4 F L 06/06/19 13:35 Pulse Rate 49 L 06/06/19 13:35 Respiratory Rate 18 06/06/19 13:35 Blood Pressure 144/72 06/06/19 13:35 O2 Sat by Pulse Oximetry (%) Laboratory Tests 06/06/19 06/06/19 06/06/19 08:00 08:00 08:00 WBC 4.7 RBC 4.31 Hgb 12.0 Hct 37.0 MCV 85.8 MCH 27.9 MCHC 32.5 RDW 14.8 Plt Count 157 MPV 10.0 Sodium 142 Potassium 4.0 Chloride 104 Carbon Dioxide 32 Anion Gap 5 L BUN 18.6 H Creatinine 1.0 Est GFR (CKD-EPI)AfAm 95.06 Est GFR (CKD-EPI)NonAf 82.02 Random Glucose 117 H Calcium 8.6 Total Bilirubin 0.5 AST 57 H ALT 56 Alkaline Phosphatase 76 Total Protein 6.1 L Albumin 3.4 RPR Titer Nonreactive LABS NOTED. Assessment: 06/06/19 16:01 WITHDRAWAL SYMPTOMS. ELEVATED AST LEVEL. Plan: CONTINUE DETOX. INCREASE DAILY PO WATER INTAKE.
[2019-06-06] MEDS: THIAMINE HCL 100 MG TABLET (FP) PO SCH (21:13)
[2019-06-06] MEDS: METHOCARBAMOL 500 MG TABLET PO PRN (21:13)
[2019-06-06] MEDS: MELATONIN 5 MG TABLETS PO PRN (21:14)
[2019-06-07] MEDS: GABAPENTIN 100 MG CAPSULE (FP) PO SCH ×3 (05:16→22:09)
[2019-06-07] MEDS ORDERED: METHADONE HCL 10 MG TABLET (FOR DETOX USE ONLY) PO ONE (10:00)
[2019-06-07] MEDS: HYDROCHLOROTHIAZIDE 25 MG TABLET (FP) PO SCH (10:10)
[2019-06-07] MEDS: NICOTINE 21 MG/24 HOURS TOPICAL PATCH TD SCH (10:12)
[2019-06-07] MEDS: PRENATAL VITAMINS W/ FOLIC ACID TABLET (FP) PO SCH (10:13)
[2019-06-07] MEDS: MULTIVITAMINS (DAILY MVI) TABLET (FP) PO SCH (10:14)
--- NOTE | 2019-06-07 13:31 | PN ---
BHS COWS - Scale Resting Pulse: 0= [place] 80 or Below Sweatin= Chills/Flushing Restless Observation: 1= Difficult to Sit Still Pupil Size: 0= Normal to Room Light Bone or Joint Aches: 1= Mild Discomfort Runny Nose/ Eye Tearin= None GI Upset > 30mins: 0= None Tremor Observation of Outstretched Hands: 1= Tremor [place], Not Seen Yawning Observation: 1= 1-2x During Session Anxiety or Irritability: 2=Irritable/Anxious Goose Flesh Skin: 0=Smooth Skin COWS Score: 7 BHS Progress Note (SOAP) Subjective: c/o interrupted sleep body aches Objective: 06/07/19 13:26 Vital Signs Temperature 97.2 F L 06/07/19 13:16 Pulse Rate 49 L 06/07/19 13:16 Respiratory Rate 18 06/07/19 13:16 Blood Pressure 138/81 06/07/19 13:16 O2 Sat by Pulse Oximetry (%) Laboratory Last Values WBC 4.7 K/mm3 (4.0-10.0) 06/06/19 08:00 RBC 4.31 M/mm3 (4.00-5.60) 06/06/19 08:00 Hgb 12.0 GM/dL (11.7-16.9) 06/06/19 08:00 Hct 37.0 % (35.4-49) 06/06/19 08:00 MCV 85.8 fl (80-96) 06/06/19 08:00 MCH 27.9 pg (25.7-33.7) 06/06/19 08:00 MCHC 32.5 g/dl (32.0-35.9) 06/06/19 08:00 RDW 14.8 % (11.9-15.9) 06/06/19 08:00 Plt Count 157 K/MM3 (134-434) 06/06/19 08:00 MPV 10.0 fl (7.5-11.1) 06/06/19 08:00 Sodium 142 mmol/L (136-145) 06/06/19 08:00 Potassium 4.0 mmol/L (3.5-5.1) 06/06/19 08:00 Chloride 104 mmol/L (98-107) 06/06/19 08:00 Carbon Dioxide 32 mmol/L (21-32) 06/06/19 08:00 Anion Gap 5 MMOL/L (8-16) L 06/06/19 08:00 BUN 18.6 mg/dL (7-18) H 06/06/19 08:00 Creatinine 1.0 mg/dL (0.55-1.3) 06/06/19 08:00 Est GFR (CKD-EPI)AfAm 95.06 06/06/19 08:00 Est GFR (CKD-EPI)NonAf 82.02 06/06/19 08:00 Random Glucose 117 mg/dL (74-106) H 06/06/19 08:00 Calcium 8.6 mg/dL (8.5-10.1) 06/06/19 08:00 Total Bilirubin 0.5 mg/dL (0.2-1) 06/06/19 08:00 AST 57 U/L (15-37) H 06/06/19 08:00 ALT 56 U/L (13-61) 06/06/19 08:00 Alkaline Phosphatase 76 U/L (45-117) 06/06/19 08:00 Total Protein 6.1 g/dl (6.4-8.2) L 06/06/19 08:00 Albumin 3.4 g/dl (3.4-5.0) 06/06/19 08:00 RPR Titer Nonreactive (NONREACTIVE) 06/06/19 08:00 labs reviewed Assessment: 06/07/19 13:27 Aox3 no acute distress no gait disturbance full ROM no gait abnormality , ambulating in the unit withdrawal symptoms Plan: increase PO fluids continue detox continue to monitor if stable may be d/c Wednesday
[2019-06-07] MEDS: MELATONIN 5 MG TABLETS PO PRN (22:09)
[2019-06-07] MEDS: THIAMINE HCL 100 MG TABLET (FP) PO SCH (22:09)
[2019-06-07] MEDS: METHOCARBAMOL 500 MG TABLET PO PRN (22:10)
[2019-06-08] MEDS: IBUPROFEN 400 MG TABLET (FP) PO PRN (06:09)
[2019-06-08] MEDS: GABAPENTIN 100 MG CAPSULE (FP) PO SCH ×3 (06:09→22:26)
[2019-06-08] MEDS ORDERED: METHADONE HCL 5 MG TABLET (FOR DETOX USE ONLY) ONE (08:37)
[2019-06-08] MEDS ORDERED: METHADONE HCL 10 MG TABLET (FOR DETOX USE ONLY) ONE (08:37)
[2019-06-08] MEDS ORDERED: METHADONE (DETOX) 10 MG, METHADONE (DETOX) 5 MG PO ONE (10:00)
[2019-06-08] MEDS: HYDROCHLOROTHIAZIDE 25 MG TABLET (FP) PO SCH (10:23)
[2019-06-08] MEDS: NICOTINE 21 MG/24 HOURS TOPICAL PATCH TD SCH (10:24)
[2019-06-08] MEDS: PRENATAL VITAMINS W/ FOLIC ACID TABLET (FP) PO SCH (10:24)
[2019-06-08] MEDS: METHOCARBAMOL 500 MG TABLET PO PRN ×2 (12:28→22:26)
--- NOTE | 2019-06-08 16:37 | PN ---
BHS COWS - Scale Resting Pulse: 0= [place] 80 or Below Sweatin= No chills or Flushing Restless Observation: 1= Difficult to Sit Still Pupil Size: 0= Normal to Room Light Bone or Joint Aches: 2= Severe Diffuse Aches Runny Nose/ Eye Tearin= None GI Upset > 30mins: 0= None Tremor Observation of Outstretched Hands: 0= None Yawning Observation: 1= 1-2x During Session Anxiety or Irritability: 2=Irritable/Anxious Goose Flesh Skin: 0=Smooth Skin COWS Score: 6 BHS Progress Note (SOAP) Subjective: Body Aches, Anxious. Objective: PATIENT A & O X 3, OBSERVED AMBULATING ON DETOX UNIT UNASSISTED. IN NO ACUTE DISTRESS. 06/08/19 16:35 Vital Signs Temperature 97.6 F 06/08/19 14:11 Pulse Rate 48 L 06/08/19 14:11 Respiratory Rate 18 06/08/19 14:11 Blood Pressure 161/82 06/08/19 14:11 O2 Sat by Pulse Oximetry (%) Laboratory Tests 06/06/19 06/06/19 06/06/19 08:00 08:00 08:00 WBC 4.7 RBC 4.31 Hgb 12.0 Hct 37.0 MCV 85.8 MCH 27.9 MCHC 32.5 RDW 14.8 Plt Count 157 MPV 10.0 Sodium 142 Potassium 4.0 Chloride 104 Carbon Dioxide 32 Anion Gap 5 L BUN 18.6 H Creatinine 1.0 Est GFR (CKD-EPI)AfAm 95.06 Est GFR (CKD-EPI)NonAf 82.02 Random Glucose 117 H Calcium 8.6 Total Bilirubin 0.5 AST 57 H ALT 56 Alkaline Phosphatase 76 Total Protein 6.1 L Albumin 3.4 RPR Titer Nonreactive LABS NOTED. PATIENT HAS HAD ELEVATED AST LEVELS ON PREVIOUS ADMISSIONS. 06/08/19 16:36 Assessment: 06/08/19 16:35 WITHDRAWAL SYMPTOMS. ELEVATED AST LEVEL. Plan: CONTINUE DETOX. PATIENT LIKELY TO BE DISCHARGED FROM DETOX UNIT TOMORROW TO GO TO REHAB.
[2019-06-08] MEDS: THIAMINE HCL 100 MG TABLET (FP) PO SCH (22:26)
[2019-06-08] MEDS: MELATONIN 5 MG TABLETS PO PRN (22:26)
[2019-06-09] MEDS: METHOCARBAMOL 500 MG TABLET PO PRN (04:56)
[2019-06-09] MEDS: IBUPROFEN 400 MG TABLET (FP) PO PRN (04:56)
[2019-06-09] MEDS: GABAPENTIN 100 MG CAPSULE (FP) PO SCH (05:50)
[2019-06-09] MEDS ORDERED: METHADONE HCL 10 MG TABLET (FOR DETOX USE ONLY) PO ONE ×2 (06:00→10:00)
[2019-06-09 09:18] VITALS: BP 131/78; PULSE 48; TEMP 97.1
--- NOTE | 2019-06-09 10:05 | DS ---
[facility] Detox Discharge Summary Admission Date: 06/05/19 - History Present History: Alcohol Dependence, Cocaine Dependence, Opioid Dependence - Physical Exam Results Vital Signs: Vital Signs Temperature 97.1 F L 06/09/19 09:17 Pulse Rate 48 L 06/09/19 09:17 Respiratory Rate 18 06/09/19 09:17 Blood Pressure 131/78 06/09/19 09:17 O2 Sat by Pulse Oximetry (%) - Treatment Hospital Course: Detox Protocol Followed, Detoxed Safely, Responded well, Discharged Condition Good - Medication Discharge Medications: Ambulatory Orders Multivitamins [Tab-A-Vit -] 1 tab PO DAILY 08/04/18 Diltiazem HCl [Diltiazem 24Hr Cd] 240 mg PO DAILY 06/05/19 Gabapentin 100 mg PO TID 06/05/19 Hydrochlorothiazide 50 mg PO DAILY 06/05/19 Naproxen 375 mg PO BID 06/05/19 - AMA Did Patient Leave Against Medical Advice: No
[2019-06-10] MEDS ORDERED: METHADONE HCL 5 MG TABLET (FOR DETOX USE ONLY) PO ONE (06:00)
== END 2019-06-09 12:05 | disposition home or self-care (01) | DRG 773 ==
LOC: YASAS 12:28 → Y3N 19:21
PROVIDERS: ADMIT Allergy & Immunology; ATTEND Allergy & Immunology
PROC: HZ2ZZZZ Detoxification Services for Substance Abuse Treatment (ICD-10-PCS; principal; 2019-06-05)
DX: F11.23 Opioid dependence with withdrawal (principal); F10.230 Alcohol dependence with withdrawal, uncomplicated; F14.20 Cocaine dependence, uncomplicated; F20.0 Paranoid schizophrenia; F32.9 Major depressive disorder, single episode, unspecified; I10 Essential (primary) hypertension; R94.5 Abnormal results of liver function studies; Z96.652 Presence of left artificial knee joint
CPT/HCPCS: 36415; 80053; 85027; 86593

== ENCOUNTER 2019-06-12 11:27 | Inpatient (IN) | payer OTHER ==
[2019-06-12 11:54] VITALS: BMI 21.9
--- NOTE | 2019-06-12 12:32 | HP ---
COWS - Scale Resting Pulse: 1= [place] 81-100 Sweatin= Chills/Flushing Restless Observation: 1= Difficult to Sit Still Pupil Size: 2= Moderately Dilated Bone or Joint Aches: 2= Severe Diffuse Aches Runny Nose/ Eye Tearin= Runny Nose/Eyes GI Upset > 30mins: 2= Nausea/Diarrhea Tremor Observation: 2= Slight Tremor Visible Yawning Observation: 1= 1-2x During Session Anxiety or Irritability: 1=Feels Anxious/Irritable Goose Flesh Skin: 3=Piloerection COWS Score: 18 CIWA Score - Admission Criteria OASAS Guidelines: Admission for Medically Managed Detox: Requires at least one of the followin. CIWA greater than 12 2. Seizures within the past 24 hours 3. Delirium tremens within the past 24 hours 4. Hallucinations within the past 24 hours 5. Acute intervention needed for co occurring medical disorder 6. Acute intervention needed for co occurring psychiatric disorder 7. Severe withdrawal that cannot be handled at a lower level of care (continued vomiting, continued diarrhea, abnormal vital signs) requiring intravenous medication and/or fluids 8. Admitting History and Physical - Admission Chief Complaint: " I want to enter detox once again because i started using right away because there were no rehab beds for me." History of Present Illness: 58 year old male with a past medical history of back and knee problems presents for heroin detox. Last here in detox 1 year ago. 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 States he wants to go to [place] for care home rehab. Heroin: 10 bags per day, sniffs heroin. Never injected. Started using around 25 years ago (in his 30s). Never had a seizure. Has no narcan kit. Alcohol: little bit of hennesy now and then, last drank yesterday; never withdrawn from alcohol. 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 Last day of use is yesterday. - Smoking History Smoking history: Unknown if ever smoked Have you smoked in the past 12 months: No Aproximately how many cigarettes per day: 3 - Alcohol/Substance Use Hx Alcohol Use: No Admission ROS [facility] Chief Complaint: " I want to enter detox once again because i started using right away because there were no rehab beds for me." Allergies/Adverse Reactions: Allergies Allergy/AdvReac Type Severity Reaction Status Date / Time No Known Allergies Allergy Verified 06/12/19 11:49 History of Present Illness: 58 year old male with a past medical history of back and knee problems presents for heroin detox. Last here in detox 1 year ago. 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 States he wants to go to [place] for printing engineer rehab. Heroin: 10 bags per day, sniffs heroin. Never injected. Started using around 25 years ago (in his 30s). Never had a seizure. Has no narcan kit. Alcohol: little bit of hennesy now and then, last drank yesterday; never withdrawn from alcohol. 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 Last day of use is yesterday. Exam Limitations: No Limitations - Ebola screening Have you traveled outside of the country in the last 21 days: No Have you had contact with anyone from an Ebola affected area: No Have you been sick,other than usual withdrawal symptoms: No Do you have a fever: No - Review of Systems Constitutional: Chills, Diaphoresis EENT: reports: No Symptoms Reported Respiratory: reports: No Symptoms reported Cardiac: reports: No Symptoms Reported GI: reports: No Symptoms Reported : reports: Flank Pain Musculoskeletal: reports: No Symptoms Reported Integumentary: reports: No Symptoms Reported Neuro: reports: No Symptoms reported Endocrine: reports: No Symptoms Reported Hematology: reports: No Symptoms Reported Psychiatric: reports: Judgement Intact, Mood/Affect Appropiate, Orientated x3, Agitated Other Systems: Reviewed and Negative Patient History - Patient Medical History Hx Anemia: No Hx Asthma: No Hx Chronic Obstructive Pulmonary Disease (COPD): No Hx Cancer: No Hx Cardiac Disorders: No Hx Congestive Heart Failure: No Hx Hypertension: Yes (BP: 147/81) Hx Hypercholesterolemia: No Hx Pacemaker: No HX Cerebrovascular Accident: No Hx Seizures: No Hx Dementia: No Hx Diabetes: No Hx Gastrointestinal Disorders: No Hx Liver Disease: No Hx Genitourinary Disorders: No Hx Sexually Transmitted Disorders: No Hx Renal Disease (ESRD): No Hx Thyroid Disease: No Hx Human Immunodeficiency Virus (HIV): No (NEGATIVE HX) Hx Hepatitis C: No Hx Depression: No Hx Suicide Attempt: No Hx Bipolar Disorder: No Hx Schizophrenia: No - Patient Surgical History Past Surgical History: Yes Hx Neurologic Surgery: No Hx Cataract Extraction: No Hx Cardiac Surgery: No Hx Lung Surgery: No Hx Breast Surgery: No Hx Breast Biopsy: No Hx Abdominal Surgery: No Hx Appendectomy: No Hx Cholecystectomy: No Hx Genitourinary Surgery: No Hx Section: No Hx Orthopedic Surgery: Yes (lower back and right leg fx, L knee replacement) Hx Hysterectomy: No Other Surgical History: left knee replacement Anesthesia Reaction: No - PPD History Previous Implant?: Yes Documented Results: Negative w/proof Implanted On Prior R Admission?: Yes Date: 08/03/18 Results: 0 mm PPD to be Administered?: No - Smoking Cessation Smoking history: Unknown if ever smoked Have you smoked in the past 12 months: No Aproximately how many cigarettes per day: 3 Hx Chewing Tobacco Use: No Initiated information on smoking cessation: Yes 'Breaking Loose' booklet given: 06/12/19 - Substances abused Alcohol Substance route: Oral Frequency: Daily Amount used: 2 40oz beers Age of first use: 33 Date of last use: 06/11/19 Heroin Substance route: Inhalation Frequency: Daily Amount used: 3-4 bags Age of first use: 42 Date of last use: 06/11/19 Cocaine Substance route: Inhalation Frequency: 3-6 times per week Amount used: $80 Age of first use: 41 Date of last use: 06/11/19 Admission Physical Exam BHS - Vital Signs Vital Signs: Vital Signs - 24 hr 10/14/19 11:52 Temperature 97.3 F L Pulse Rate 72 Respiratory 16 Rate Blood Pressure 166/89 - Physical General Appearance: Yes: Moderate Distress HEENTM: Yes: EOMI, Hearing grossly Normal, Normal ENT Inspection, Normocephalic , Normal Voice, LIAM, Pharynx Normal Respiratory: Yes: Chest Non-Tender, Lungs Clear, Normal Breath Sounds, No Respiratory Distress, No Accessory Muscle Use Neck: Yes: No masses,lesions,Nodules, Supple, Trachea in good position Breast: Yes: Within Normal Limits Cardiology: Yes: Regular Rhythm, S1, S2, Tachycardia Abdominal: Yes: Normal Bowel Sounds, Non Tender, Soft, Increased Bowel Sounds Genitourinary: Yes: Within Normal Limits Back: Yes: Normal Inspection Musculoskeletal: Yes: full range of Motion, Gait Steady Extremities: Yes: Normal Capillary Refill, Normal Inspection, Normal Range of Motion, Non-Tender 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 intact, Fully Oriented, Alert, Motor Strength 5/5, Normal Mood/Affect, Normal Response Integumentary: Yes: Normal Color, Warm Lymphatic: Yes: Within Normal Limits - Diagnostic (1) Alcohol dependence Current Visit: Yes Status: Acute (2) Crack cocaine use Current Visit: Yes Status: Acute (3) Opioid dependence with withdrawal Current Visit: Yes Status: Acute (4) Arthritis of knee, left Current Visit: Yes Status: Chronic (5) HTN (hypertension) Current Visit: Yes Status: Chronic Qualifiers: Hypertension type: essential hypertension Qualified Code(s): I10 - Essential (primary) hypertension (6) Nicotine dependence Current Visit: Yes Status: Chronic Cleared for Admission S - Detox or Rehab [facility] Level of Care: Medically Managed Screened but not Admitted - Documentation of Visit Screened but not Admitted: No Breathalyzer - Breathalyzer Breathalyzer: 0 Vital Signs - Vital Signs Vital signs refused: No Temperature: 97.3 F Temperature source: Oral Pulse Rate: 72 Respiratory Rate: 16 Blood Pressure: 166/89 BP Location: Left Arm Blood Pressure position: Sitting - Height Height: 6 ft - Weight Weight: 162 lb Weight measurement method: Standing scale - BMI Body Mass Index (BMI): 21.9 - Bowel Function Bowel Movement: Yes Urine Drug Screen - Test Device Lot number: [id number] Expiration date: 01/27/21 - Control Is test valid?: Yes - Results Drug screen NEGATIVE: No Urine drug screen results: THC-Marijuana, DARIO-Cocaine, MOP-Opiates, MTD- Methadone Inpatient Rehab Admission - Rehab Decision to Admit Inpatient rehab admission?: No
[2019-06-12] MEDS ORDERED: hydrOXYzine PAMOATE 25 MG CAPSULE (FP) PO PRN (12:38)
[2019-06-12] MEDS ORDERED: ACETAMINOPHEN 325 MG TABLET (FP) PO PRN (12:38)
[2019-06-12] MEDS ORDERED: MENTHOL/PHENOL 1 EACH UD MM PRN (12:38)
[2019-06-12] MEDS ORDERED: cloNIDine HCL 0.1 MG TABLET PO PRN (12:38)
[2019-06-12] MEDS ORDERED: MAGNESIUM CITRATE 300 ML BOTTLE PO PRN (12:38)
[2019-06-12] MEDS ORDERED: BISMUTH SUBSALICYLATE 262 MG/15 ML BTL PO PRN (12:38)
[2019-06-12] MEDS ORDERED: MAG HYDROX/AL HYDROX/SIMETH 30 ML UNIT-DOSE CUP PO PRN (12:38)
[2019-06-12] MEDS ORDERED: METHADONE HCL 10 MG TABLET (FOR DETOX USE ONLY) PO ONE (14:30)
[2019-06-12] MEDS: HYDROCHLOROTHIAZIDE 25 MG TABLET (FP) PO SCH (15:24)
[2019-06-12] MEDS: GABAPENTIN 100 MG CAPSULE (FP) PO SCH ×2 (15:25→22:09)
[2019-06-12] MEDS: ACETAMINOPHEN 325 MG TABLET (FP) PO PRN (17:34)
[2019-06-12] MEDS: METHOCARBAMOL 500 MG TABLET PO PRN (17:35)
[2019-06-12] MEDS: THIAMINE HCL 100 MG TABLET (FP) PO SCH (22:09)
[2019-06-12] MEDS: MELATONIN 5 MG TABLETS PO PRN (22:10)
[2019-06-12] MEDS: NAPROXEN 375 MG TABLET (FP) PO SCH (23:12)
[2019-06-13] MEDS: ACETAMINOPHEN 325 MG TABLET (FP) PO PRN (04:21)
[2019-06-13] MEDS: METHOCARBAMOL 500 MG TABLET PO PRN ×2 (04:22→10:47)
[2019-06-13] MEDS: GABAPENTIN 100 MG CAPSULE (FP) PO SCH ×3 (05:00→21:38)
[2019-06-13] MEDS ORDERED: METHADONE HCL 5 MG TABLET (FOR DETOX USE ONLY) ONE (08:41)
[2019-06-13] MEDS ORDERED: METHADONE HCL 10 MG TABLET (FOR DETOX USE ONLY) ONE (08:42)
[2019-06-13] MEDS: NAPROXEN 375 MG TABLET (FP) PO SCH ×2 (09:35→21:38)
[2019-06-13] MEDS: NICOTINE 7 MG/24 HOURS TOPICAL PATCH TD SCH (09:35)
[2019-06-13] MEDS: PRENATAL VITAMINS W/ FOLIC ACID TABLET (FP) PO SCH (09:35)
[2019-06-13] MEDS ORDERED: METHADONE (DETOX) 20 MG, METHADONE (DETOX) 5 MG PO ONE (10:00)
[2019-06-13] MEDS: HYDROCHLOROTHIAZIDE 25 MG TABLET (FP) PO SCH (12:22)
--- NOTE | 2019-06-13 13:02 | PN ---
BHS COWS - Scale Resting Pulse: 0= [place] 80 or Below Sweatin= Chills/Flushing Restless Observation: 1= Difficult to Sit Still Pupil Size: 1= Pupils >than Normal Bone or Joint Aches: 1= Mild Discomfort Runny Nose/ Eye Tearin= Nasal Congestion GI Upset > 30mins: 2= Nausea/Diarrhea Tremor Observation of Outstretched Hands: 0= None Yawning Observation: 0= None Anxiety or Irritability: 1=Feels Anxious/Irritable Goose Flesh Skin: 0=Smooth Skin COWS Score: 8 BHS Progress Note (SOAP) Subjective: interrupted sleep, sweats, nausea, lbp Objective: 06/13/19 12:59 Vital Signs Temperature 98.1 F 06/13/19 09:19 Pulse Rate 52 L 06/13/19 09:19 Respiratory Rate 16 06/13/19 09:19 Blood Pressure 120/61 06/13/19 09:19 O2 Sat by Pulse Oximetry (%) pending labs 58 y/o thin m pt aox3 in nad ambulating well. Assessment: 06/13/19 13:01 withdrawalm sx's Plan: continue detox increase fluidd ensure bid
[2019-06-13] MEDS: THIAMINE HCL 100 MG TABLET (FP) PO SCH (21:38)
[2019-06-13] MEDS: MELATONIN 5 MG TABLETS PO PRN (21:39)
[2019-06-14] MEDS: ACETAMINOPHEN 325 MG TABLET (FP) PO PRN (01:56)
[2019-06-14] MEDS: METHOCARBAMOL 500 MG TABLET PO PRN ×2 (02:00→14:08)
[2019-06-14] MEDS: GABAPENTIN 100 MG CAPSULE (FP) PO SCH ×3 (05:25→21:29)
[2019-06-14] MEDS: PRENATAL VITAMINS W/ FOLIC ACID TABLET (FP) PO SCH (09:23)
[2019-06-14] MEDS: NICOTINE 7 MG/24 HOURS TOPICAL PATCH TD SCH (09:23)
[2019-06-14] MEDS: NAPROXEN 375 MG TABLET (FP) PO SCH ×2 (09:23→21:28)
[2019-06-14] MEDS: HYDROCHLOROTHIAZIDE 25 MG TABLET (FP) PO SCH (09:24)
[2019-06-14] MEDS: MAGNESIUM HYDROX 2400MG/30ML ORAL SUSPENSION 30 ML CUP PO PRN (09:28)
[2019-06-14] MEDS ORDERED: METHADONE HCL 10 MG TABLET (FOR DETOX USE ONLY) PO ONE (10:00)
--- NOTE | 2019-06-14 14:56 | PN ---
BHS COWS - Scale Resting Pulse: 0= [place] 80 or Below Sweatin= Chills/Flushing Restless Observation: 1= Difficult to Sit Still Pupil Size: 0= Normal to Room Light Bone or Joint Aches: 1= Mild Discomfort Runny Nose/ Eye Tearin= None GI Upset > 30mins: 2= Nausea/Diarrhea Tremor Observation of Outstretched Hands: 0= None Yawning Observation: 1= 1-2x During Session Anxiety or Irritability: 1=Feels Anxious/Irritable Goose Flesh Skin: 0=Smooth Skin COWS Score: 7 BHS Progress Note (SOAP) Subjective: c/o of back pain, nausea, vomiting and interrupted sleep Objective: 06/14/19 14:55 Vital Signs Temperature 97.7 F 06/14/19 13:04 Pulse Rate 54 L 06/14/19 13:04 Respiratory Rate 18 06/14/19 13:04 Blood Pressure 140/83 06/14/19 13:04 O2 Sat by Pulse Oximetry (%) Labs from admission one week ago reviewed , stable, continue to monitor Assessment: 06/14/19 14:58 Aox3 no acute distress full ROM no gait disturbance Plan: increase PO fluids continue to monitor
[2019-06-14] MEDS: THIAMINE HCL 100 MG TABLET (FP) PO SCH (21:28)
[2019-06-14] MEDS: MELATONIN 5 MG TABLETS PO PRN (21:28)
[2019-06-15] MEDS: METHOCARBAMOL 500 MG TABLET PO PRN (04:07)
[2019-06-15] MEDS: GABAPENTIN 100 MG CAPSULE (FP) PO SCH ×3 (06:02→22:17)
[2019-06-15] MEDS ORDERED: METHADONE HCL 10 MG TABLET (FOR DETOX USE ONLY) ONE (09:53)
[2019-06-15] MEDS ORDERED: METHADONE HCL 5 MG TABLET (FOR DETOX USE ONLY) ONE (09:53)
[2019-06-15] MEDS ORDERED: METHADONE (DETOX) 10 MG, METHADONE (DETOX) 5 MG PO ONE (10:00)
[2019-06-15] MEDS: NAPROXEN 375 MG TABLET (FP) PO SCH ×2 (10:18→22:17)
[2019-06-15] MEDS: NICOTINE 7 MG/24 HOURS TOPICAL PATCH TD SCH (10:18)
[2019-06-15] MEDS: HYDROCHLOROTHIAZIDE 25 MG TABLET (FP) PO SCH (10:19)
[2019-06-15] MEDS: PRENATAL VITAMINS W/ FOLIC ACID TABLET (FP) PO SCH (10:19)
[2019-06-15] MEDS: MAGNESIUM HYDROX 2400MG/30ML ORAL SUSPENSION 30 ML CUP PO PRN (14:07)
--- NOTE | 2019-06-15 14:56 | PN ---
[facility] CIWA - CIWA Score Nausea/Vomitin-No Nausea/No Vomiting Muscle Tremors: 1-None Visible, but [place] Anxiety: 3 Agitation: 0-Normal Activity Paroxysmal Sweats: 1-Minimal Palms Moist Orientation: 0-Oriented Tacttile Disturbances: 2-Mild Itch/Numbness/Burn Auditory Disturbances: 0-None Visual Disturbances: 0-None Headache: 0-None Present CIWA-Ar Total Score: 7 BHS COWS - Scale Resting Pulse: 0= [place] 80 or Below BHS Progress Note (SOAP) Subjective: c/o interrupted sleep, chills, sweats Objective: 06/15/19 15:39 Vital Signs Temperature 97.9 F 06/15/19 13:24 Pulse Rate 54 L 06/15/19 13:24 Respiratory Rate 18 06/15/19 13:24 Blood Pressure 166/91 06/15/19 13:24 O2 Sat by Pulse Oximetry (%) Assessment: 06/15/19 15:39 Aox3 no acute distress full ROM no gait abnormality b/l scars both knees, no edema or erythema withdrawal symptoms Plan: increase PO fluids d/c in AM to [facility] continue detox continue to monitor
[2019-06-15] MEDS: THIAMINE HCL 100 MG TABLET (FP) PO SCH (22:17)
[2019-06-16] MEDS: GABAPENTIN 100 MG CAPSULE (FP) PO SCH (05:34)
[2019-06-16] MEDS ORDERED: METHADONE HCL 5 MG TABLET (FOR DETOX USE ONLY) PO ONE (06:00)
[2019-06-16] MEDS: PRENATAL VITAMINS W/ FOLIC ACID TABLET (FP) PO SCH (09:04)
[2019-06-16] MEDS: NAPROXEN 375 MG TABLET (FP) PO SCH (09:04)
[2019-06-16] MEDS: HYDROCHLOROTHIAZIDE 25 MG TABLET (FP) PO SCH (09:05)
[2019-06-16 09:22] VITALS: BP 157/83; PULSE 64; TEMP 97.9
[2019-06-16] MEDS: NICOTINE 7 MG/24 HOURS TOPICAL PATCH TD SCH (09:29)
[2019-06-16] MEDS ORDERED: METHADONE HCL 10 MG TABLET (FOR DETOX USE ONLY) PO ONE (10:00)
--- NOTE | 2019-06-16 11:11 | DS ---
[facility] Detox Discharge Summary Admission Date: 06/12/19 Discharge Date: 06/16/19 - History Present History: Alcohol Dependence, Cocaine Dependence, Opioid Dependence - Physical Exam Results Vital Signs: Vital Signs Temperature 97.9 F 06/16/19 09:20 Pulse Rate 64 06/16/19 09:20 Respiratory Rate 20 06/16/19 09:20 Blood Pressure 157/83 06/16/19 09:20 O2 Sat by Pulse Oximetry (%) Pertinent Admission Physical Exam Findings: pt arrived in withdrawals Vital Signs Temperature 97.9 F 06/16/19 09:20 Pulse Rate 64 06/16/19 09:20 Respiratory Rate 20 06/16/19 09:20 Blood Pressure 157/83 06/16/19 09:20 O2 Sat by Pulse Oximetry (%) pt is aaox3 ambulating no acute distress no s/s of withdrawals - Treatment Hospital Course: Detox Protocol Followed, Detoxed Safely, Responded well, Discharged Condition Good, Rehab Referral Accepted Patient has Accepted a Rehab Referral to: pt referred [facility] rehab - Medication Discharge Medications: Ambulatory Orders Multivitamins [Tab-A-Vit -] 1 tab PO DAILY 08/04/18 Diltiazem HCl [Diltiazem 24Hr Cd] 240 mg PO DAILY 06/05/19 Gabapentin 100 mg PO TID 06/05/19 Hydrochlorothiazide 50 mg PO DAILY 06/05/19 Naproxen 375 mg PO BID 06/05/19 - Diagnosis (1) Alcohol dependence Current Visit: Yes Status: Chronic Qualifiers: Substance use status: uncomplicated Qualified Code(s): F10.20 - Alcohol dependence, uncomplicated (2) Crack cocaine use Current Visit: Yes Status: Chronic (3) Opioid dependence with withdrawal Current Visit: Yes Status: Chronic (4) Arthritis of knee, left Current Visit: Yes Status: Chronic (5) HTN (hypertension) Current Visit: Yes Status: Chronic Qualifiers: Hypertension type: essential hypertension Qualified Code(s): I10 - Essential (primary) hypertension (6) Nicotine dependence Current Visit: Yes Status: Chronic Qualifiers: Nicotine product type: cigarettes Substance use status: uncomplicated Qualified Code(s): F17.210 - Nicotine dependence, cigarettes, uncomplicated (7) SOB (shortness of breath) Current Visit: No Status: Acute (8) Cocaine dependence Current Visit: Yes Status: Chronic Qualifiers: Substance use status: uncomplicated Qualified Code(s): F14.20 - Cocaine dependence, uncomplicated (9) Opioid dependence Current Visit: Yes Status: Chronic (10) Schizophrenia Current Visit: No Status: Chronic Qualifiers: Schizophrenia type: undifferentiated schizophrenia Qualified Code(s): F20.3 - Undifferentiated schizophrenia (11) Unsuccessful suicide attempt Current Visit: No Status: Chronic - AMA Did Patient Leave Against Medical Advice: No
[2019-06-17] MEDS ORDERED: METHADONE HCL 5 MG TABLET (FOR DETOX USE ONLY) PO ONE (06:00)
== END 2019-06-16 12:10 | disposition other institution (70) | DRG 773 ==
LOC: YASAS 11:27 → Y6N 13:29
PROVIDERS: ADMIT Allergy & Immunology; ATTEND Allergy & Immunology
PROC: HZ2ZZZZ Detoxification Services for Substance Abuse Treatment (ICD-10-PCS; principal; 2019-06-12)
DX: F11.23 Opioid dependence with withdrawal (principal); F10.20 Alcohol dependence, uncomplicated; F14.20 Cocaine dependence, uncomplicated; F12.20 Cannabis dependence, uncomplicated; F17.210 Nicotine dependence, cigarettes, uncomplicated; F20.3 Undifferentiated schizophrenia; I10 Essential (primary) hypertension; M13.862 Other specified arthritis, left knee; M13.861 Other specified arthritis, right knee; R06.02 Shortness of breath; Z96.652 Presence of left artificial knee joint; Z91.5 Personal history of self-harm

== ENCOUNTER 2019-07-24 10:51 | Inpatient (IN) | payer OTHER ==
[2019-07-24 12:05] VITALS: BMI 22.6
--- NOTE | 2019-07-24 13:17 | HP ---
COWS - Scale Resting Pulse: 0= [place] 80 or Below Sweatin= Chills/Flushing Restless Observation: 1= Difficult to Sit Still Pupil Size: 1= Pupils >than Normal Bone or Joint Aches: 2= Severe Diffuse Aches Runny Nose/ Eye Tearin= Runny Nose/Eyes GI Upset > 30mins: 1= Stomach Cramp Tremor Observation: 2= Slight Tremor Visible Yawning Observation: 1= 1-2x During Session Anxiety or Irritability: 2=Irritable/Anxious Goose Flesh Skin: 3=Piloerection COWS Score: 16 CIWA Score - Admission Criteria OASAS Guidelines: Admission for Medically Managed Detox: Requires at least one of the followin. CIWA greater than 12 2. Seizures within the past 24 hours 3. Delirium tremens within the past 24 hours 4. Hallucinations within the past 24 hours 5. Acute intervention needed for co occurring medical disorder 6. Acute intervention needed for co occurring psychiatric disorder 7. Severe withdrawal that cannot be handled at a lower level of care (continued vomiting, continued diarrhea, abnormal vital signs) requiring intravenous medication and/or fluids 8. 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 Last here in detox 05/2019 but did not complete detox because plans for discharge were not being dose so he decided to leave. 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 States he wants to go to [place] for [facility] re[facility]. When he left he did [facility] for rehab and then was supposed to go to [facility] but he could not enter there due to poor planning. Heroin: 10 bags per day, sniffs heroin. Never injected. Started using around 25 years ago (in his 30s). Never had a seizure. Has no narcan kit. He last used yesterday. He started using 90 days later. He last used heroin yesterday. Alcohol: little bit of hennesy now and then, last drank yesterday; never withdrawn from alcohol. 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 - Advance Directives Advance Directives: No: Living Will, Health Care Proxy, DNR - Smoking History Smoking history: Unknown if ever smoked Have you smoked in the past 12 months: No Aproximately how many cigarettes per day: 3 - Alcohol/Substance Use Hx Alcohol Use: No History of Substance Use: reports: Cocaine, Heroin - Social History Usual Living Arrangement: Yes: Alone Do you think of yourself as: Straight/Heterosexual ADL: Independent Occupation: unemployed History of Recent Travel: No Admission [facility] Allergies/Adverse Reactions: Allergies Allergy/AdvReac Type Severity Reaction Status Date / Time No Known Allergies Allergy Verified 07/24/19 11:59 - Ebola screening Have you traveled outside of the country in the last 21 days: No Have you had contact with anyone from an Ebola affected area: No Have you been sick,other than usual withdrawal symptoms: No Do you have a fever: No - Review of Systems Constitutional: Chills, Diaphoresis EENT: reports: Blurred Vision Respiratory: reports: Shortness of Breath Cardiac: reports: No Symptoms Reported GI: reports: Nausea, Abdominal cramping : reports: No Symptoms Reported Musculoskeletal: reports: No Symptoms Reported Integumentary: reports: No Symptoms Reported Neuro: reports: Headache Endocrine: reports: No Symptoms Reported Hematology: reports: No Symptoms Reported Psychiatric: reports: Judgement Intact, Mood/Affect Appropiate, Orientated x3, Anxious Other Systems: Reviewed and Negative Patient History - Patient Medical History Hx Anemia: No Hx Asthma: No Hx Chronic Obstructive Pulmonary Disease (COPD): No Hx Cancer: No Hx Cardiac Disorders: No Hx Congestive Heart Failure: No Hx Hypertension: Yes (bp 166/89) Hx Hypercholesterolemia: No Hx Pacemaker: No HX Cerebrovascular Accident: No Hx Seizures: No Hx Dementia: No Hx Diabetes: No Hx Gastrointestinal Disorders: No Hx Liver Disease: No Hx Genitourinary Disorders: No Hx Sexually Transmitted Disorders: No Hx Renal Disease (ESRD): No Hx Thyroid Disease: No Hx Human Immunodeficiency Virus (HIV): No (NEGATIVE HX) Hx Hepatitis C: No Hx Depression: No Hx Suicide Attempt: No Hx Bipolar Disorder: No Hx Schizophrenia: No - Patient Surgical History Past Surgical History: Yes Hx Neurologic Surgery: No Hx Cataract Extraction: No Hx Cardiac Surgery: No Hx Lung Surgery: No Hx Breast Surgery: No Hx Breast Biopsy: No Hx Abdominal Surgery: No Hx Appendectomy: No Hx Cholecystectomy: No Hx Genitourinary Surgery: No Hx Section: No Hx Orthopedic Surgery: Yes (lower back and right leg fx, L knee replacement) Hx Hysterectomy: No Other Surgical History: left knee replacement Anesthesia Reaction: No - PPD History Previous Implant?: Yes Documented Results: Negative w/proof Implanted On Prior R Admission?: Yes Date: 08/03/18 Results: 0 mm PPD to be Administered?: No - Smoking Cessation Smoking history: Unknown if ever smoked Have you smoked in the past 12 months: No Aproximately how many cigarettes per day: 3 Hx Chewing Tobacco Use: No - Substances abused Alcohol Substance route: Oral Frequency: Daily Amount used: 2 40oz beers Age of first use: 33 Date of last use: 06/11/19 Heroin Substance route: Inhalation Frequency: Daily Amount used: $200 Age of first use: 39 Date of last use: 07/23/19 Cocaine Substance route: Inhalation Frequency: 3-6 times per week Amount used: $150 Age of first use: 39 Date of last use: 07/23/19 Admission Physical Exam BHS - Vital Signs Vital Signs: Vital Signs - 24 hr 07/24/19 12:01 Temperature 97.0 F L Pulse Rate 167 H Respiratory 18 Rate Blood Pressure 138/76 - Physical General Appearance: Yes: Mild Distress HEENTM: Yes: EOMI, Hearing grossly Normal, Normal ENT Inspection, Normocephalic , Normal Voice, LIAM, Pharynx Normal, Tm's normal Respiratory: Yes: Chest Non-Tender, Lungs Clear, Normal Breath Sounds, No Respiratory Distress, No Accessory Muscle Use, Wheezing (lower lobe wheezing.) Neck: Yes: No masses,lesions,Nodules, Trachea in good position Breast: Yes: Within Normal Limits, Axillae without masses, Breasts Symetrical, No Discharge, No masses Cardiology: Yes: Regular Rhythm, Regular Rate, S1, S2 Abdominal: Yes: Normal Bowel Sounds, Non Tender, Flat, Soft, Other (some calcified lipomas on abdomen) Genitourinary: Yes: Within Normal Limits Back: Yes: Normal Inspection Musculoskeletal: Yes: full range of Motion, Gait Steady, Pelvis Stable Extremities: Yes: Within Normal Limits, Normal Capillary Refill, Normal Inspection, Normal Range of Motion, Non-Tender Neurological: Yes: care asst II-XII NML intact, Fully Oriented, Alert, Motor Strength 5/5, Normal Mood/Affect, Normal Response Integumentary: Yes: Normal Color, Warm Lymphatic: Yes: Within Normal Limits - Diagnostic (1) Crack cocaine use Current Visit: Yes Status: Chronic (2) HTN (hypertension) Current Visit: Yes Status: Chronic Qualifiers: Hypertension type: essential hypertension Qualified Code(s): I10 - Essential (primary) hypertension (3) Nicotine dependence Current Visit: Yes Status: Chronic Qualifiers: Nicotine product type: cigarettes Substance use status: uncomplicated Qualified Code(s): F17.210 - Nicotine dependence, cigarettes, uncomplicated (4) Opioid dependence with withdrawal Current Visit: Yes Status: Chronic Screened but not Admitted - Documentation of Visit Screened but not Admitted: No Breathalyzer - Breathalyzer Breathalyzer: 0 Urine Drug Screen - Test Device Lot number: [id number] Expiration date: 03/28/21 - Control Is test valid?: Yes - Results Drug screen NEGATIVE: No Urine drug screen results: THC-Marijuana, DARIO-Cocaine Inpatient Rehab Admission - Rehab Decision to Admit Inpatient rehab admission?: No
[2019-07-24] MEDS ORDERED: ACETAMINOPHEN 325 MG TABLET (FP) PO PRN ×2 (13:29)
[2019-07-24] MEDS ORDERED: hydrOXYzine PAMOATE 25 MG CAPSULE (FP) PO PRN (13:29)
[2019-07-24] MEDS ORDERED: BISMUTH SUBSALICYLATE 262 MG/15 ML BTL PO PRN (13:29)
[2019-07-24] MEDS ORDERED: MAGNESIUM CITRATE 300 ML BOTTLE PO PRN (13:29)
[2019-07-24] MEDS ORDERED: MAGNESIUM HYDROX 2400MG/30ML ORAL SUSPENSION 30 ML CUP PO PRN (13:29)
[2019-07-24] MEDS ORDERED: MAG HYDROX/AL HYDROX/SIMETH 30 ML UNIT-DOSE CUP PO PRN (13:29)
[2019-07-24] MEDS ORDERED: MENTHOL/PHENOL 1 EACH UD MM PRN (13:29)
[2019-07-24] MEDS ORDERED: cloNIDine HCL 0.1 MG TABLET PO PRN (13:29)
[2019-07-24] MEDS ORDERED: METHADONE HCL 10 MG TABLET (FOR DETOX USE ONLY) PO ONE (14:15)
[2019-07-24 18:50] LABS: HEMATOCRIT 37.1 % (35.4-49); HEMOGLOBIN 12.1 GM/dL (11.7-16.9); MCH 28.3 pg (25.7-33.7); MCHC 32.6 g/dl (32.0-35.9); MEAN CELL VOLUME 86.8 fl (80-96); MEAN PLT VOLUME 10.2 fl (7.5-11.1); PLATELET COUNT 186 K/MM3 (134-434); RBC 4.27 M/mm3 (4.00-5.60); WHITE BLOOD COUNT 3.4 K/mm3 (4.0-10.0)
[2019-07-24] MEDS ORDERED: NICOTINE POLACRILEX 4 MG GUM BUC PRN (18:50)
[2019-07-24 19:01] LABS: ALBUMIN 3.5 g/dl (3.4-5.0); BILIRUBIN,TOTAL 0.4 mg/dL (0.2-1); BLOOD UREA NITROGEN 22.5 mg/dL (7-18); CALCIUM 8.8 mg/dL (8.5-10.1); CREATININE 0.9 mg/dL (0.55-1.3); POTASSIUM 3.8 mmol/L (3.5-5.1); TOT PROT 6.5 g/dl (6.4-8.2)
[2019-07-24] MEDS: MELATONIN 5 MG TABLETS PO PRN (22:21)
[2019-07-24] MEDS: THIAMINE HCL 100 MG TABLET (FP) PO SCH (22:21)
--- NOTE | 2019-07-25 08:16 | CONSULT ---
[facility] Psychiatric Consult - Data Date of interview: 07/25/19 Admission source: Self-referred Identifying data: Mr Beasley is a 58 years old Black male, father of 2 children, unemployed receiving [facility], domiciled [facility] detox treatment for opioid, cocaine and cannabis Substance Abuse History: Reports history of heroin, cocaine and marijuana use. Refer to addiction counselor's summary for further information Medical History: Significant for hypertension, arthritis of left knee and back, history of orthosurgery for left knee replacememt, lower back and fracture right leg. Smokes 3 cigarettes daily Psychiatric History: Reports being diagnosed with paranoid schizophrenia in his 20's while in [facility] and started on psychotropic medications. Reports 3 previous admissions all to [facility]. Denies receiving OPD care and not taking psychotropic medications for years(9 years). Reportedly, he took Geodon and Cogentin in the past. Reports one previous suicidal attempt via overdose on pills years ago. At present, denies experiencing psychotic symptoms , S/H ideations. He expresses unwillingness to resume psychotropic medications during this admission Physical/Sexual Abuse/Trauma History: Reportedly denies history of abuse Additional Comment: Multiple previous incarcerations including felony convictions Mental Status Exam - Mental Status Exam Alert and Oriented to: Time, Place, Person Cognitive Function: Fair Patient Appearance: Well Groomed Mood: Hopeful, Euthymic Affect: Constricted Patient Behavior: Cooperative Speech Pattern: Clear Voice Loudness: Normal Thought Process: Intact Thought Disorder: Not Present Hallucinations: Denies Suicidal Ideation: Denies Homicidal Ideation: Denies Insight/Judgement: Poor Appetite: Good Muscle strength/Tone: Normal Gait/Station: Normal Psychiatric Findings - Problem List ([place] 1, 2,3) (1) Schizophrenia Current Visit: No Status: Chronic Qualifiers: Schizophrenia type: undifferentiated schizophrenia Qualified Code(s): F20.3 - Undifferentiated schizophrenia (2) Opioid dependence with withdrawal Current Visit: Yes Status: Acute (3) Cocaine dependence Current Visit: No Status: Acute Qualifiers: Substance use status: uncomplicated Qualified Code(s): F14.20 - Cocaine dependence, uncomplicated (4) Cannabis abuse Current Visit: Yes Status: Acute (5) Nicotine dependence Current Visit: Yes Status: Chronic Qualifiers: Nicotine product type: cigarettes Substance use status: uncomplicated Qualified Code(s): F17.210 - Nicotine dependence, cigarettes, uncomplicated (6) HTN (hypertension) Current Visit: Yes Status: Chronic Qualifiers: Hypertension type: essential hypertension Qualified Code(s): I10 - Essential (primary) hypertension (7) Arthritis of knee, left Current Visit: No Status: Chronic - Initial Treatment Plan Initial Treatment Plan: Continue inpatient detoxification
[2019-07-25] MEDS ORDERED: METHADONE HCL 5 MG TABLET (FOR DETOX USE ONLY) ONE (09:00)
[2019-07-25] MEDS ORDERED: METHADONE HCL 10 MG TABLET (FOR DETOX USE ONLY) ONE (09:01)
--- NOTE | 2019-07-25 09:06 | PN ---
S COWS - Scale Resting Pulse: 0= [place] 80 or Below Sweatin= No chills or Flushing Restless Observation: 1= Difficult to Sit Still Pupil Size: 1= Pupils >than Normal Bone or Joint Aches: 1= Mild Discomfort Runny Nose/ Eye Tearin= Nasal Congestion GI Upset > 30mins: 1= Stomach Cramp Tremor Observation of Outstretched Hands: 1= Tremor [place], Not Seen Yawning Observation: 1= 1-2x During Session Anxiety or Irritability: 2=Irritable/Anxious Goose Flesh Skin: 0=Smooth Skin COWS Score: 9 S Progress Note (SOAP) Subjective: alert,irritable,anxious,interrupted sleep,pain in the body and back,knee Objective: 07/25/19 09:05 Vital Signs Temperature 97.2 F L 07/25/19 06:00 Pulse Rate 57 L 07/25/19 06:00 Respiratory Rate 18 07/25/19 06:00 Blood Pressure 132/73 07/25/19 06:00 O2 Sat by Pulse Oximetry (%) 07/25/19 09:05 Laboratory Last Values WBC 3.4 K/mm3 (4.0-10.0) L 07/24/19 14:00 RBC 4.27 M/mm3 (4.00-5.60) 07/24/19 14:00 Hgb 12.1 GM/dL (11.7-16.9) 07/24/19 14:00 Hct 37.1 % (35.4-49) 07/24/19 14:00 MCV 86.8 fl (80-96) 07/24/19 14:00 MCH 28.3 pg (25.7-33.7) 07/24/19 14:00 MCHC 32.6 g/dl (32.0-35.9) 07/24/19 14:00 RDW 15.0 % (11.9-15.9) 07/24/19 14:00 Plt Count 186 K/MM3 (134-434) 07/24/19 14:00 MPV 10.2 fl (7.5-11.1) 07/24/19 14:00 Sodium 141 mmol/L (136-145) 07/24/19 14:00 Potassium 3.8 mmol/L (3.5-5.1) 07/24/19 14:00 Chloride 110 mmol/L (98-107) H 07/24/19 14:00 Carbon Dioxide 29 mmol/L (21-32) 07/24/19 14:00 Anion Gap 3 MMOL/L (8-16) L 07/24/19 14:00 BUN 22.5 mg/dL (7-18) H 07/24/19 14:00 Creatinine 0.9 mg/dL (0.55-1.3) 07/24/19 14:00 Est GFR (CKD-EPI)AfAm 107.97 07/24/19 14:00 Est GFR (CKD-EPI)NonAf 93.16 07/24/19 14:00 Random Glucose 77 mg/dL (74-106) 07/24/19 14:00 Calcium 8.8 mg/dL (8.5-10.1) 07/24/19 14:00 Total Bilirubin 0.4 mg/dL (0.2-1) 07/24/19 14:00 AST 42 U/L (15-37) H 07/24/19 14:00 ALT 42 U/L (13-61) 07/24/19 14:00 Alkaline Phosphatase 66 U/L (45-117) 07/24/19 14:00 Total Protein 6.5 g/dl (6.4-8.2) 07/24/19 14:00 Albumin 3.5 g/dl (3.4-5.0) 07/24/19 14:00 07/25/19 09:05 rpr pending Assessment: 07/25/19 09:05 withdrawal symptom Plan: continue detox,methadone regimen
[2019-07-25] MEDS: PRENATAL VITAMINS W/ FOLIC ACID TABLET (FP) PO SCH (09:56)
[2019-07-25] MEDS ORDERED: METHADONE (DETOX) 20 MG, METHADONE (DETOX) 5 MG PO ONE (10:00)
[2019-07-25] MEDS ORDERED: HYDROCHLOROTHIAZIDE 25 MG TABLET (FP) PO ONE (12:27)
[2019-07-25] MEDS: METHOCARBAMOL 500 MG TABLET PO PRN (12:51)
[2019-07-25] MEDS: THIAMINE HCL 100 MG TABLET (FP) PO SCH (22:04)
[2019-07-25] MEDS: MELATONIN 5 MG TABLETS PO PRN (22:04)
--- NOTE | 2019-07-26 09:33 | PN ---
BHS COWS - Scale Resting Pulse: 0= [place] 80 or Below Sweatin= No chills or Flushing Restless Observation: 1= Difficult to Sit Still Pupil Size: 1= Pupils >than Normal Bone or Joint Aches: 1= Mild Discomfort Runny Nose/ Eye Tearin= Nasal Congestion GI Upset > 30mins: 1= Stomach Cramp Tremor Observation of Outstretched Hands: 2= Slight Tremor Visible Yawning Observation: 1= 1-2x During Session Anxiety or Irritability: 2=Irritable/Anxious Goose Flesh Skin: 0=Smooth Skin COWS Score: 10 BHS Progress Note (SOAP) Subjective: alert,irritable,anxious,interrupted sleep,pain in the body Objective: 07/26/19 09:30 Vital Signs Temperature 97.8 F 07/26/19 09:24 Pulse Rate 52 L 07/26/19 09:24 Respiratory Rate 18 07/26/19 09:24 Blood Pressure 142/78 07/26/19 09:24 O2 Sat by Pulse Oximetry (%) Laboratory Last Values WBC 3.4 K/mm3 (4.0-10.0) L 07/24/19 14:00 RBC 4.27 M/mm3 (4.00-5.60) 07/24/19 14:00 Hgb 12.1 GM/dL (11.7-16.9) 07/24/19 14:00 Hct 37.1 % (35.4-49) 07/24/19 14:00 MCV 86.8 fl (80-96) 07/24/19 14:00 MCH 28.3 pg (25.7-33.7) 07/24/19 14:00 MCHC 32.6 g/dl (32.0-35.9) 07/24/19 14:00 RDW 15.0 % (11.9-15.9) 07/24/19 14:00 Plt Count 186 K/MM3 (134-434) 07/24/19 14:00 MPV 10.2 fl (7.5-11.1) 07/24/19 14:00 Sodium 141 mmol/L (136-145) 07/24/19 14:00 Potassium 3.8 mmol/L (3.5-5.1) 07/24/19 14:00 Chloride 110 mmol/L (98-107) H 07/24/19 14:00 Carbon Dioxide 29 mmol/L (21-32) 07/24/19 14:00 Anion Gap 3 MMOL/L (8-16) L 07/24/19 14:00 BUN 22.5 mg/dL (7-18) H 07/24/19 14:00 Creatinine 0.9 mg/dL (0.55-1.3) 07/24/19 14:00 Est GFR (CKD-EPI)AfAm 107.97 07/24/19 14:00 Est GFR (CKD-EPI)NonAf 93.16 07/24/19 14:00 Random Glucose 77 mg/dL (74-106) 07/24/19 14:00 Calcium 8.8 mg/dL (8.5-10.1) 07/24/19 14:00 Total Bilirubin 0.4 mg/dL (0.2-1) 07/24/19 14:00 AST 42 U/L (15-37) H 07/24/19 14:00 ALT 42 U/L (13-61) 07/24/19 14:00 Alkaline Phosphatase 66 U/L (45-117) 07/24/19 14:00 Total Protein 6.5 g/dl (6.4-8.2) 07/24/19 14:00 Albumin 3.5 g/dl (3.4-5.0) 07/24/19 14:00 RPR Titer Nonreactive (NONREACTIVE) 07/24/19 14:00 Assessment: 07/26/19 09:31 withdrawal symptom Plan: continue detox methadone regimen,encourage oral fluid,repeat bmp in am,initial bun is 22.5 probably dehydration
[2019-07-26] MEDS ORDERED: METHADONE HCL 10 MG TABLET (FOR DETOX USE ONLY) PO ONE (10:00)
[2019-07-26] MEDS: HYDROCHLOROTHIAZIDE 25 MG TABLET (FP) PO SCH (10:10)
[2019-07-26] MEDS: PRENATAL VITAMINS W/ FOLIC ACID TABLET (FP) PO SCH (10:10)
[2019-07-26] MEDS: IBUPROFEN 400 MG TABLET (FP) PO PRN (10:13)
[2019-07-26] MEDS: THIAMINE HCL 100 MG TABLET (FP) PO SCH (22:05)
[2019-07-26] MEDS: MELATONIN 5 MG TABLETS PO PRN (22:06)
[2019-07-27] MEDS ORDERED: METHADONE HCL 10 MG TABLET (FOR DETOX USE ONLY) ONE (09:02)
[2019-07-27] MEDS ORDERED: METHADONE HCL 5 MG TABLET (FOR DETOX USE ONLY) ONE (09:02)
[2019-07-27] MEDS ORDERED: METHADONE (DETOX) 10 MG, METHADONE (DETOX) 5 MG PO ONE (10:00)
[2019-07-27] MEDS: PRENATAL VITAMINS W/ FOLIC ACID TABLET (FP) PO SCH (10:04)
[2019-07-27] MEDS: HYDROCHLOROTHIAZIDE 25 MG TABLET (FP) PO SCH (10:04)
[2019-07-27] MEDS: METHOCARBAMOL 500 MG TABLET PO PRN (10:45)
[2019-07-27] MEDS: IBUPROFEN 400 MG TABLET (FP) PO PRN (10:45)
--- NOTE | 2019-07-27 12:31 | PN ---
S CIWA - CIWA Score Nausea/Vomitin-Mild Nausea/No Vomiting Muscle Tremors: None Anxiety: 2 Agitation: 0-Normal Activity Paroxysmal Sweats: 2 Orientation: 0-Oriented Tacttile Disturbances: 2-Mild Itch/Numbness/Burn Auditory Disturbances: 0-None Visual Disturbances: 0-None Headache: 0-None Present CIWA-Ar Total Score: 7 BHS Progress Note (SOAP) Subjective: interrupted sleep, sweats Objective: 07/27/19 12:21 Vital Signs Temperature 97.5 F L 07/27/19 09:40 Pulse Rate 50 L 07/27/19 09:40 Respiratory Rate 18 07/27/19 09:40 Blood Pressure 128/69 07/27/19 09:40 O2 Sat by Pulse Oximetry (%) Laboratory Tests 07/24/19 07/24/19 07/24/19 14:00 14:00 14:00 WBC 3.4 L RBC 4.27 Hgb 12.1 Hct 37.1 MCV 86.8 MCH 28.3 MCHC 32.6 RDW 15.0 Plt Count 186 MPV 10.2 Sodium 141 Potassium 3.8 Chloride 110 H Carbon Dioxide 29 Anion Gap 3 L BUN 22.5 H Creatinine 0.9 Est GFR (CKD-EPI)AfAm 107.97 Est GFR (CKD-EPI)NonAf 93.16 Random Glucose 77 Calcium 8.8 Total Bilirubin 0.4 AST 42 H ALT 42 Alkaline Phosphatase 66 Total Protein 6.5 Albumin 3.5 RPR Titer Nonreactive pt aox3 in nad ambulating well Assessment: 07/27/19 12:22 withdrawal sx's pt seeking early d/c 07/27/19 12:32 Plan: cont. detox increase fluids d/c in am
[2019-07-27 13:12] LABS: BLOOD UREA NITROGEN 19.1 mg/dL (7-18); CALCIUM 8.7 mg/dL (8.5-10.1)
[2019-07-27 20:17] VITALS: TEMP 97.7
[2019-07-27] MEDS: THIAMINE HCL 100 MG TABLET (FP) PO SCH (21:36)
[2019-07-27] MEDS: MELATONIN 5 MG TABLETS PO PRN (21:40)
[2019-07-28 05:57] VITALS: BP 167/84; PULSE 48
[2019-07-28] MEDS ORDERED: METHADONE HCL 10 MG TABLET (FOR DETOX USE ONLY) PO ONE (10:00)
[2019-07-29] MEDS ORDERED: METHADONE HCL 5 MG TABLET (FOR DETOX USE ONLY) PO ONE (06:00)
== END 2019-07-28 06:55 | disposition home or self-care (01) | DRG 773 ==
LOC: YASAS 10:51 → Y6N 14:09
PROVIDERS: ADMIT Allergy & Immunology; ATTEND Allergy & Immunology
PROC: HZ2ZZZZ Detoxification Services for Substance Abuse Treatment (ICD-10-PCS; principal; 2019-07-24)
DX: F11.23 Opioid dependence with withdrawal (principal); F14.20 Cocaine dependence, uncomplicated; F12.20 Cannabis dependence, uncomplicated; F17.210 Nicotine dependence, cigarettes, uncomplicated; F20.0 Paranoid schizophrenia; I10 Essential (primary) hypertension; Z96.652 Presence of left artificial knee joint
CPT/HCPCS: 36415; 80048; 80053; 85027; 86593; J0735

== ENCOUNTER 2019-08-07 10:47 | Inpatient (IN) | payer OTHER ==
[2019-08-07 11:13] VITALS: BMI 22.4
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
[2019-08-07] MEDS ORDERED: MENTHOL/PHENOL 1 EACH UD MM PRN (12:52)
[2019-08-07] MEDS ORDERED: MAGNESIUM HYDROX 2400MG/30ML ORAL SUSPENSION 30 ML CUP PO PRN (12:52)
[2019-08-07] MEDS ORDERED: BISMUTH SUBSALICYLATE 524 MG/30 ML UD PO PRN (12:52)
[2019-08-07] MEDS ORDERED: ACETAMINOPHEN 325 MG TABLET (FP) PO PRN ×2 (12:52)
[2019-08-07] MEDS ORDERED: clonazePAM 0.5 MG TABLET PO PRN (12:52)
[2019-08-07] MEDS ORDERED: NICOTINE POLACRILEX 2 MG GUM BUC PRN (12:52)
[2019-08-07] MEDS ORDERED: cloNIDine HCL 0.1 MG TABLET PO PRN (12:52)
[2019-08-07] MEDS ORDERED: IBUPROFEN 400 MG TABLET (FP) PO PRN (12:52)
[2019-08-07] MEDS ORDERED: MAG HYDROX/AL HYDROX/SIMETH 30 ML UNIT-DOSE CUP PO PRN (12:52)
[2019-08-07] MEDS ORDERED: MAGNESIUM CITRATE 300 ML BOTTLE PO PRN (12:52)
[2019-08-07] MEDS ORDERED: hydrOXYzine PAMOATE 25 MG CAPSULE (FP) PO PRN (12:52)
[2019-08-07] MEDS ORDERED: GABAPENTIN 100 MG CAPSULE (FP) PO PRN (12:55)
[2019-08-07] MEDS ORDERED: METHADONE HCL 10 MG TABLET (FOR DETOX USE ONLY) PO ONE (14:00)
[2019-08-07] MEDS ORDERED: AMOX TR/POT CLAV 875MG/125MG TABLETS (FP) PO SCH (14:00)
[2019-08-07] MEDS: THIAMINE HCL 100 MG TABLET (FP) PO SCH (22:05)
[2019-08-07] MEDS: METHOCARBAMOL 500 MG TABLET PO PRN (22:05)
[2019-08-07] MEDS: MELATONIN 5 MG TABLETS PO PRN (22:05)
[2019-08-08] MEDS: METHOCARBAMOL 500 MG TABLET PO PRN ×2 (05:30→22:07)
[2019-08-08] MEDS ORDERED: dilTIAZem HCL 60 MG TABLET (FP) PO SCH (07:00)
[2019-08-08] MEDS ORDERED: METHADONE HCL 10 MG TABLET (FOR DETOX USE ONLY) ONE (09:18)
[2019-08-08] MEDS ORDERED: METHADONE HCL 5 MG TABLET (FOR DETOX USE ONLY) ONE (09:18)
[2019-08-08] MEDS ORDERED: METHADONE (DETOX) 20 MG, METHADONE (DETOX) 5 MG PO ONE (10:00)
[2019-08-08] MEDS: PRENATAL VITAMINS W/ FOLIC ACID TABLET (FP) PO SCH (10:22)
[2019-08-08] MEDS: HYDROCHLOROTHIAZIDE 25 MG TABLET (FP) PO SCH (10:22)
[2019-08-08] MEDS: NICOTINE 14 MG/24 HOURS TOPICAL PATCH TD SCH (10:24)
[2019-08-08 10:59] LABS: HEMATOCRIT 41.5 % (35.4-49); HEMOGLOBIN 13.1 GM/dL (11.7-16.9); MCH 27.9 pg (25.7-33.7); MCHC 31.6 g/dl (32.0-35.9); MEAN CELL VOLUME 88.1 fl (80-96); MEAN PLT VOLUME 11.6 fl (7.5-11.1); PLATELET COUNT 159 K/MM3 (134-434); RBC 4.71 M/mm3 (4.00-5.60); RDW 15.3 % (11.9-15.9); WHITE BLOOD COUNT 3.4 K/mm3 (4.0-10.0)
[2019-08-08 11:22] LABS: ALBUMIN 3.8 g/dl (3.4-5.0); BILIRUBIN,TOTAL 0.4 mg/dL (0.2-1); CALCIUM 9.2 mg/dL (8.5-10.1); CREATININE 1.1 mg/dL (0.55-1.3); POTASSIUM 4.1 mmol/L (3.5-5.1); TOT PROT 7.2 g/dl (6.4-8.2)
[2019-08-08] MEDS ORDERED: cloNIDine HCL 0.1 MG TABLET PO PRN (14:48)
--- NOTE | 2019-08-08 14:50 | PN ---
BHS COWS - Scale Resting Pulse: 0= [place] 80 or Below Sweatin= Chills/Flushing Restless Observation: 0= Sits Still Pupil Size: 1= Pupils >than Normal Bone or Joint Aches: 2= Severe Diffuse Aches Runny Nose/ Eye Tearin= None GI Upset > 30mins: 2= Nausea/Diarrhea Tremor Observation of Outstretched Hands: 2= Slight Tremor Visible Yawning Observation: 0= None Anxiety or Irritability: 1=Feels Anxious/Irritable Goose Flesh Skin: 3=Piloerection COWS Score: 12 BHS Progress Note (SOAP) Subjective: 58 years old male admitted on 08/07/19 for opiate withdrawal sx management treated with methadone detox regimen long history of hypertension taking cardizem 60 mg po daily increase to 90 mg po tomorrow clonidine prn administer when systolic above 110 Objective: 08/08/19 14:49 Vital Signs Temperature 98.0 F 08/08/19 13:25 Pulse Rate 48 L 08/08/19 13:25 Respiratory Rate 18 08/08/19 13:25 Blood Pressure 148/81 08/08/19 13:25 O2 Sat by Pulse Oximetry (%) Laboratory Last Values WBC 3.4 K/mm3 (4.0-10.0) L 08/08/19 06:15 RBC 4.71 M/mm3 (4.00-5.60) 08/08/19 06:15 Hgb 13.1 GM/dL (11.7-16.9) 08/08/19 06:15 Hct 41.5 % (35.4-49) 08/08/19 06:15 MCV 88.1 fl (80-96) 08/08/19 06:15 MCH 27.9 pg (25.7-33.7) 08/08/19 06:15 MCHC 31.6 g/dl (32.0-35.9) L 08/08/19 06:15 RDW 15.3 % (11.9-15.9) 08/08/19 06:15 Plt Count 159 K/MM3 (134-434) 08/08/19 06:15 MPV 11.6 fl (7.5-11.1) H D 08/08/19 06:15 Sodium 141 mmol/L (136-145) 08/08/19 06:15 Potassium 4.1 mmol/L (3.5-5.1) 08/08/19 06:15 Chloride 103 mmol/L (98-107) 08/08/19 06:15 Carbon Dioxide 31 mmol/L (21-32) 08/08/19 06:15 Anion Gap 7 MMOL/L (8-16) L 08/08/19 06:15 BUN 22.0 mg/dL (7-18) H 08/08/19 06:15 Creatinine 1.1 mg/dL (0.55-1.3) 08/08/19 06:15 Est GFR (CKD-EPI)AfAm 84.71 08/08/19 06:15 Est GFR (CKD-EPI)NonAf 73.09 08/08/19 06:15 Random Glucose 99 mg/dL (74-106) 08/08/19 06:15 Calcium 9.2 mg/dL (8.5-10.1) 08/08/19 06:15 Total Bilirubin 0.4 mg/dL (0.2-1) 08/08/19 06:15 AST 29 U/L (15-37) 08/08/19 06:15 ALT 37 U/L (13-61) 08/08/19 06:15 Alkaline Phosphatase 57 U/L (45-117) 08/08/19 06:15 Total Protein 7.2 g/dl (6.4-8.2) 08/08/19 06:15 Albumin 3.8 g/dl (3.4-5.0) 08/08/19 06:15 lab noted Assessment: 08/08/19 14:49 opiate withdrawal sx Plan: methadone regimen
[2019-08-08] MEDS: MELATONIN 5 MG TABLETS PO PRN (22:06)
[2019-08-08] MEDS: THIAMINE HCL 100 MG TABLET (FP) PO SCH (22:07)
[2019-08-09] MEDS: METHOCARBAMOL 500 MG TABLET PO PRN ×2 (05:26→22:09)
[2019-08-09] MEDS ORDERED: dilTIAZem HCL 60 MG TABLET (FP) PO SCH (10:00)
[2019-08-09] MEDS ORDERED: DILTIAZEM 30 MG, DILTIAZEM 60 MG PO SCH (10:00)
[2019-08-09] MEDS ORDERED: METHADONE HCL 10 MG TABLET (FOR DETOX USE ONLY) PO ONE (10:00)
[2019-08-09] MEDS: HYDROCHLOROTHIAZIDE 25 MG TABLET (FP) PO SCH (10:26)
[2019-08-09] MEDS: NICOTINE 14 MG/24 HOURS TOPICAL PATCH TD SCH (10:26)
[2019-08-09] MEDS: PRENATAL VITAMINS W/ FOLIC ACID TABLET (FP) PO SCH (10:26)
[2019-08-09] MEDS: dilTIAZem HCL 60 MG TABLET (FP) PO SCH (10:27)
--- NOTE | 2019-08-09 13:03 | PN ---
BHS COWS - Scale Resting Pulse: 0= [place] 80 or Below Sweatin= Chills/Flushing Restless Observation: 0= Sits Still Pupil Size: 1= Pupils >than Normal Bone or Joint Aches: 1= Mild Discomfort Runny Nose/ Eye Tearin= None GI Upset > 30mins: 1= Stomach Cramp Tremor Observation of Outstretched Hands: 2= Slight Tremor Visible Yawning Observation: 0= None Anxiety or Irritability: 2=Irritable/Anxious Goose Flesh Skin: 3=Piloerection COWS Score: 11 S Progress Note (SOAP) Subjective: 58 years old male admitted on 08/07/19 for opiate withdrawal sx management treated with methadone detox regimen requests to be seen by a psychiatrist that he was taking psychotropic medication "while ago" patient denies suicidal denies homocidal no self destructive behavior Objective: 08/09/19 13:21 Vital Signs Temperature 97.3 F L 08/09/19 09:26 Pulse Rate 58 L 08/09/19 09:26 Respiratory Rate 18 08/09/19 09:26 Blood Pressure 132/75 08/09/19 09:26 O2 Sat by Pulse Oximetry (%) Laboratory Last Values WBC 3.4 K/mm3 (4.0-10.0) L 08/08/19 06:15 RBC 4.71 M/mm3 (4.00-5.60) 08/08/19 06:15 Hgb 13.1 GM/dL (11.7-16.9) 08/08/19 06:15 Hct 41.5 % (35.4-49) 08/08/19 06:15 MCV 88.1 fl (80-96) 08/08/19 06:15 MCH 27.9 pg (25.7-33.7) 08/08/19 06:15 MCHC 31.6 g/dl (32.0-35.9) L 08/08/19 06:15 RDW 15.3 % (11.9-15.9) 08/08/19 06:15 Plt Count 159 K/MM3 (134-434) 08/08/19 06:15 MPV 11.6 fl (7.5-11.1) H D 08/08/19 06:15 Sodium 141 mmol/L (136-145) 08/08/19 06:15 Potassium 4.1 mmol/L (3.5-5.1) 08/08/19 06:15 Chloride 103 mmol/L (98-107) 08/08/19 06:15 Carbon Dioxide 31 mmol/L (21-32) 08/08/19 06:15 Anion Gap 7 MMOL/L (8-16) L 08/08/19 06:15 BUN 22.0 mg/dL (7-18) H 08/08/19 06:15 Creatinine 1.1 mg/dL (0.55-1.3) 08/08/19 06:15 Est GFR (CKD-EPI)AfAm 84.71 08/08/19 06:15 Est GFR (CKD-EPI)NonAf 73.09 08/08/19 06:15 Random Glucose 99 mg/dL (74-106) 08/08/19 06:15 Calcium 9.2 mg/dL (8.5-10.1) 08/08/19 06:15 Total Bilirubin 0.4 mg/dL (0.2-1) 08/08/19 06:15 AST 29 U/L (15-37) 08/08/19 06:15 ALT 37 U/L (13-61) 08/08/19 06:15 Alkaline Phosphatase 57 U/L (45-117) 08/08/19 06:15 Total Protein 7.2 g/dl (6.4-8.2) 08/08/19 06:15 Albumin 3.8 g/dl (3.4-5.0) 08/08/19 06:15 lab noted Assessment: 08/09/19 13:21 opiate withdrawal sx Plan: methadone regimen
[2019-08-09] MEDS: THIAMINE HCL 100 MG TABLET (FP) PO SCH (22:10)
[2019-08-09] MEDS: MELATONIN 5 MG TABLETS PO PRN (22:10)
[2019-08-10] MEDS ORDERED: METHADONE HCL 10 MG TABLET (FOR DETOX USE ONLY) ONE (08:46)
[2019-08-10] MEDS ORDERED: METHADONE HCL 5 MG TABLET (FOR DETOX USE ONLY) ONE (08:46)
--- NOTE | 2019-08-10 08:59 | CONSULT ---
[facility] Psychiatric Consult - Data Date of interview: 08/10/19 Admission source: Self-referred Identifying data: Mr Beasley is a 58 years old Black male, father of 2 children, unemployed receiving [employer], domiciled [facility] detox treatment for opioid, cocaine and cannabis Substance Abuse History: Reports history of heroin, cocaine and marijuana use. Refer to addiction counselor's summary for further information Medical History: Significant for hypertension, arthritis of left knee and back, history of orthosurgery for left knee replacememt, lower back and fracture right leg. Smokes 3 cigarettes daily Psychiatric History: Patient is known to blurb writer from a recent encounter during an admission to this facility in June 2019. Historical narrativr remains consistent. He reports being diagnosed with paranoid schizophrenia in his 20's while in [facility] and started on psychotropic medications. Reports 3 previous psychiatric admissions all to [facility]. Denies receiving OPD care and not taking psychotropic medications for over 9 years. Reportedly, he took Geodon and Cogentin in the past. When seen by blurb writer on 07/25/19, he was unwilling to resume medications. Reports one previous suicidal attempt via overdose on pills years ago. At present, denies experiencing psychotic symptoms , S/H ideations. He still expresses unwillingness to resume psychotropic medications during this admission as well Physical/Sexual Abuse/Trauma History: Reportedly denies history of abuse Additional Comment: Multiple previous incarcerations including felony convictions Mental Status Exam - Mental Status Exam Alert and Oriented to: Time, Place, Person Cognitive Function: Fair Patient Appearance: Well Groomed Mood: Hopeful, Euthymic Affect: Appropriate Patient Behavior: Cooperative Speech Pattern: Clear Voice Loudness: Normal Thought Process: Intact Hallucinations: Denies Suicidal Ideation: Denies Homicidal Ideation: Denies Insight/Judgement: Poor Sleep: Poorly Appetite: Good Muscle strength/Tone: Normal Gait/Station: Normal Psychiatric Findings - Problem List ([place] 1, 2,3) (1) Schizophrenia Current Visit: No Status: Chronic Qualifiers: Schizophrenia type: undifferentiated schizophrenia Qualified Code(s): F20.3 - Undifferentiated schizophrenia (2) Paranoid schizophrenia Current Visit: Yes Status: Ruled-out (3) Substance-induced sleep disorder Current Visit: Yes Status: Acute (4) Opioid dependence with withdrawal Current Visit: No Status: Acute (5) Cocaine dependence Current Visit: No Status: Acute Qualifiers: Substance use status: uncomplicated Qualified Code(s): F14.20 - Cocaine dependence, uncomplicated (6) Alcohol abuse Current Visit: Yes Status: Acute (7) Cannabis abuse Current Visit: No Status: Acute (8) Nicotine dependence Current Visit: No Status: Chronic Qualifiers: Nicotine product type: cigarettes Substance use status: uncomplicated Qualified Code(s): F17.210 - Nicotine dependence, cigarettes, uncomplicated (9) HTN (hypertension) Current Visit: No Status: Chronic Qualifiers: Hypertension type: essential hypertension Qualified Code(s): I10 - Essential (primary) hypertension (10) Arthritis of knee, left Current Visit: No Status: Chronic - Initial Treatment Plan Initial Treatment Plan: Continue inpatient detoxification
[2019-08-10] MEDS ORDERED: METHADONE (DETOX) 10 MG, METHADONE (DETOX) 5 MG PO ONE (10:00)
[2019-08-10] MEDS: HYDROCHLOROTHIAZIDE 25 MG TABLET (FP) PO SCH (10:13)
[2019-08-10] MEDS: dilTIAZem HCL 60 MG TABLET (FP) PO SCH (10:13)
[2019-08-10] MEDS: NICOTINE 14 MG/24 HOURS TOPICAL PATCH TD SCH (10:13)
[2019-08-10] MEDS: PRENATAL VITAMINS W/ FOLIC ACID TABLET (FP) PO SCH (10:14)
[2019-08-10] MEDS: METHOCARBAMOL 500 MG TABLET PO PRN ×2 (10:17→22:10)
--- NOTE | 2019-08-10 11:41 | PN ---
BHS COWS - Scale Resting Pulse: 0= [place] 80 or Below Sweatin= Chills/Flushing Restless Observation: 0= Sits Still Pupil Size: 0= Normal to Room Light Bone or Joint Aches: 1= Mild Discomfort Runny Nose/ Eye Tearin= Nasal Congestion GI Upset > 30mins: 1= Stomach Cramp Tremor Observation of Outstretched Hands: 1= Tremor [place], Not Seen Yawning Observation: 1= 1-2x During Session Anxiety or Irritability: 1=Feels Anxious/Irritable Goose Flesh Skin: 0=Smooth Skin COWS Score: 7 BHS Progress Note (SOAP) Subjective: 58 years old male admitted on 08/07/19 for opiate withdrawal sx management treating with methadone detox regimen feeling better today requests to be discharged tomorrow on 08/11/19 if aftercare [facility] acceptance change methadone 10 mg to 6am tomorrow if [facility] available to him Objective: 08/10/19 11:40 Vital Signs Temperature 98.5 F 08/10/19 09:34 Pulse Rate 52 L 08/10/19 09:34 Respiratory Rate 18 08/10/19 09:34 Blood Pressure 140/75 08/10/19 09:34 O2 Sat by Pulse Oximetry (%) Laboratory Last Values WBC 3.4 K/mm3 (4.0-10.0) L 08/08/19 06:15 RBC 4.71 M/mm3 (4.00-5.60) 08/08/19 06:15 Hgb 13.1 GM/dL (11.7-16.9) 08/08/19 06:15 Hct 41.5 % (35.4-49) 08/08/19 06:15 MCV 88.1 fl (80-96) 08/08/19 06:15 MCH 27.9 pg (25.7-33.7) 08/08/19 06:15 MCHC 31.6 g/dl (32.0-35.9) L 08/08/19 06:15 RDW 15.3 % (11.9-15.9) 08/08/19 06:15 Plt Count 159 K/MM3 (134-434) 08/08/19 06:15 MPV 11.6 fl (7.5-11.1) H D 08/08/19 06:15 Sodium 141 mmol/L (136-145) 08/08/19 06:15 Potassium 4.1 mmol/L (3.5-5.1) 08/08/19 06:15 Chloride 103 mmol/L (98-107) 08/08/19 06:15 Carbon Dioxide 31 mmol/L (21-32) 08/08/19 06:15 Anion Gap 7 MMOL/L (8-16) L 08/08/19 06:15 BUN 22.0 mg/dL (7-18) H 08/08/19 06:15 Creatinine 1.1 mg/dL (0.55-1.3) 08/08/19 06:15 Est GFR (CKD-EPI)AfAm 84.71 08/08/19 06:15 Est GFR (CKD-EPI)NonAf 73.09 08/08/19 06:15 Random Glucose 99 mg/dL (74-106) 08/08/19 06:15 Calcium 9.2 mg/dL (8.5-10.1) 08/08/19 06:15 Total Bilirubin 0.4 mg/dL (0.2-1) 08/08/19 06:15 AST 29 U/L (15-37) 08/08/19 06:15 ALT 37 U/L (13-61) 08/08/19 06:15 Alkaline Phosphatase 57 U/L (45-117) 08/08/19 06:15 Total Protein 7.2 g/dl (6.4-8.2) 08/08/19 06:15 Albumin 3.8 g/dl (3.4-5.0) 08/08/19 06:15 lab noted Assessment: 08/10/19 11:40 opiate withdrawal 08/10/19 11:41 patient agrees to consider medication assisted treatment program at [facility] rehab program Plan: methadone regiment 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
[2019-08-10] MEDS: MELATONIN 5 MG TABLETS PO PRN (22:10)
[2019-08-10] MEDS: THIAMINE HCL 100 MG TABLET (FP) PO SCH (22:10)
[2019-08-11] MEDS: METHOCARBAMOL 500 MG TABLET PO PRN (05:40)
[2019-08-11] MEDS ORDERED: METHADONE HCL 10 MG TABLET (FOR DETOX USE ONLY) PO ONE ×2 (06:00→10:00)
[2019-08-11 06:14] VITALS: BP 127/75; PULSE 51; TEMP 97.8
--- NOTE | 2019-08-11 09:38 | PN ---
[facility] CIWA - CIWA Score Nausea/Vomitin-No Nausea/No Vomiting Muscle Tremors: 1-None Visible, but [place] Anxiety: 1-Mildly Anxious Agitation: 0-Normal Activity Paroxysmal Sweats: No Perspiration Orientation: 0-Oriented Tacttile Disturbances: 0-None Auditory Disturbances: 0-None Visual Disturbances: 0-None Headache: 0-None Present CIWA-Ar Total Score: 2 BHS Progress Note (SOAP) Subjective: alert,no complaint,anxious Objective: 08/11/19 09:36 Vital Signs Temperature 97.8 F 08/11/19 09:22 Pulse Rate 51 L 08/11/19 09:22 Respiratory Rate 18 08/11/19 09:22 Blood Pressure 127/75 08/11/19 09:22 O2 Sat by Pulse Oximetry (%) Assessment: 08/11/19 09:36 no withdrawal symptom Plan: stable for discharge today,follow up with after care program [facility]
--- NOTE | 2019-08-11 09:41 | DS ---
[facility] Detox Discharge Summary Admission Date: 08/07/19 Discharge Date: 08/11/19 - History Present History: Cannabis Dependence, Cocaine Dependence, Opioid Dependence Additional Comments: patient is stable for discharge today Pertinent Past History: hypertesion - Physical Exam Results Vital Signs: Vital Signs Temperature 97.8 F 08/11/19 09:22 Pulse Rate 51 L 08/11/19 09:22 Respiratory Rate 18 08/11/19 09:22 Blood Pressure 127/75 08/11/19 09:22 O2 Sat by Pulse Oximetry (%) Pertinent Admission Physical Exam Findings: withdrawal signs and symptom Laboratory Last Values WBC 3.4 K/mm3 (4.0-10.0) L 08/08/19 06:15 RBC 4.71 M/mm3 (4.00-5.60) 08/08/19 06:15 Hgb 13.1 GM/dL (11.7-16.9) 08/08/19 06:15 Hct 41.5 % (35.4-49) 08/08/19 06:15 MCV 88.1 fl (80-96) 08/08/19 06:15 MCH 27.9 pg (25.7-33.7) 08/08/19 06:15 MCHC 31.6 g/dl (32.0-35.9) L 08/08/19 06:15 RDW 15.3 % (11.9-15.9) 08/08/19 06:15 Plt Count 159 K/MM3 (134-434) 08/08/19 06:15 MPV 11.6 fl (7.5-11.1) H D 08/08/19 06:15 Sodium 141 mmol/L (136-145) 08/08/19 06:15 Potassium 4.1 mmol/L (3.5-5.1) 08/08/19 06:15 Chloride 103 mmol/L (98-107) 08/08/19 06:15 Carbon Dioxide 31 mmol/L (21-32) 08/08/19 06:15 Anion Gap 7 MMOL/L (8-16) L 08/08/19 06:15 BUN 22.0 mg/dL (7-18) H 08/08/19 06:15 Creatinine 1.1 mg/dL (0.55-1.3) 08/08/19 06:15 Est GFR (CKD-EPI)AfAm 84.71 08/08/19 06:15 Est GFR (CKD-EPI)NonAf 73.09 08/08/19 06:15 Random Glucose 99 mg/dL (74-106) 08/08/19 06:15 Calcium 9.2 mg/dL (8.5-10.1) 08/08/19 06:15 Total Bilirubin 0.4 mg/dL (0.2-1) 08/08/19 06:15 AST 29 U/L (15-37) 08/08/19 06:15 ALT 37 U/L (13-61) 08/08/19 06:15 Alkaline Phosphatase 57 U/L (45-117) 08/08/19 06:15 Total Protein 7.2 g/dl (6.4-8.2) 08/08/19 06:15 Albumin 3.8 g/dl (3.4-5.0) 08/08/19 06:15 Vital Signs Temperature 97.8 F 08/11/19 09:22 Pulse Rate 51 L 08/11/19 09:22 Respiratory Rate 18 08/11/19 09:22 Blood Pressure 127/75 08/11/19 09:22 O2 Sat by Pulse Oximetry (%) - Treatment Hospital Course: Detox Protocol Followed, Detoxed Safely, Responded well, Discharged Condition Good, Rehab Referral Accepted Patient has Accepted a Rehab Referral to: [facility] - Medication Discharge Medications: Ambulatory Orders Multivitamins [Multivit ([facility] Formulary)] 1 tab PO DAILY 08/04/18 Gabapentin 100 mg PO TID #90 capsule 07/27/19 Hydrochlorothiazide [Hctz -] 50 mg PO DAILY #30 tablet 07/27/19 Naproxen 375 mg PO BID #20 tablet 07/27/19 Amoxicillin/Potassium Clav [Amox-Clav 875-125 mg Tablet] 1 each PO BID 08/07/19 Bacitracin - [Bacitracin Topical Ointment -] 1 applic TP BID 08/07/19 Diltiazem [Cardizem -] 60 mg PO AM 08/07/19 Naloxone HCl [Narcan] 4 mg NS ASDIR PRN #1 spray 08/08/19 - Diagnosis (1) Opioid dependence with withdrawal Current Visit: No Status: Acute (2) Cannabis abuse Current Visit: No Status: Acute (3) Cocaine dependence Current Visit: No Status: Acute Qualifiers: Substance use status: uncomplicated Qualified Code(s): F14.20 - Cocaine dependence, uncomplicated (4) HTN (hypertension) Current Visit: No Status: Chronic Qualifiers: Hypertension type: essential hypertension Qualified Code(s): I10 - Essential (primary) hypertension (5) Low back pain Current Visit: Yes Status: Acute - AMA Did Patient Leave Against Medical Advice: No
--- NOTE | 2019-08-11 10:07 | PN ---
S Progress Note Note: patient has own medication at home,and has his own medical provider
[2019-08-11] MEDS: NICOTINE 14 MG/24 HOURS TOPICAL PATCH TD SCH (10:32)
[2019-08-11] MEDS: HYDROCHLOROTHIAZIDE 25 MG TABLET (FP) PO SCH (10:32)
[2019-08-11] MEDS: dilTIAZem HCL 60 MG TABLET (FP) PO SCH (10:32)
[2019-08-11] MEDS: PRENATAL VITAMINS W/ FOLIC ACID TABLET (FP) PO SCH (10:32)
[2019-08-12] MEDS ORDERED: METHADONE HCL 5 MG TABLET (FOR DETOX USE ONLY) PO ONE (06:00)
== END 2019-08-11 11:15 | disposition home or self-care (01) | DRG 773 ==
LOC: YASAS 10:47 → Y3N 13:10
PROVIDERS: ADMIT Allergy & Immunology; ATTEND Allergy & Immunology
PROC: HZ2ZZZZ Detoxification Services for Substance Abuse Treatment (ICD-10-PCS; principal; 2019-08-07)
DX: F11.23 Opioid dependence with withdrawal (principal); F14.20 Cocaine dependence, uncomplicated; F12.10 Cannabis abuse, uncomplicated; F10.10 Alcohol abuse, uncomplicated; F17.210 Nicotine dependence, cigarettes, uncomplicated; F20.3 Undifferentiated schizophrenia; F19.282 Other psychoactive substance dependence with psychoactive substance-induced sleep disorder; I10 Essential (primary) hypertension; M17.11 Unilateral primary osteoarthritis, right knee; M54.5 Low back pain; Z96.652 Presence of left artificial knee joint
CPT/HCPCS: 36415; 80053; 85027; J0735

== ENCOUNTER 2019-10-09 10:30 | Inpatient (IN) | payer OTHER ==
[2019-10-09 11:42] VITALS: BMI 21.9
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
[2019-10-09] MEDS ORDERED: METHOCARBAMOL 500 MG TABLET PO PRN (12:07)
[2019-10-09] MEDS ORDERED: hydrOXYzine PAMOATE 25 MG CAPSULE (FP) PO PRN (12:07)
[2019-10-09] MEDS ORDERED: ACETAMINOPHEN 325 MG TABLET (FP) PO PRN (12:07)
[2019-10-09] MEDS ORDERED: MENTHOL/PHENOL 1 EACH UD MM PRN (12:07)
[2019-10-09] MEDS ORDERED: cloNIDine HCL 0.1 MG TABLET PO PRN (12:07)
[2019-10-09] MEDS ORDERED: BISMUTH SUBSALICYLATE 262 MG/15 ML BTL PO PRN (12:07)
[2019-10-09] MEDS ORDERED: METHADONE HCL 10 MG TABLET (FOR DETOX USE ONLY) PO ONE (12:07)
[2019-10-09] MEDS ORDERED: MAG HYDROX/AL HYDROX/SIMETH 30 ML UNIT-DOSE CUP PO PRN (12:07)
[2019-10-09] MEDS ORDERED: MAGNESIUM HYDROX 2400MG/30ML ORAL SUSPENSION 30 ML CUP PO PRN (12:07)
[2019-10-09] MEDS ORDERED: MAGNESIUM CITRATE 300 ML BOTTLE PO PRN (12:07)
[2019-10-09] MEDS: NICOTINE 14 MG/24 HOURS TOPICAL PATCH TD SCH (13:14)
[2019-10-09 17:22] LABS: HEMATOCRIT 38.5 % (35.4-49); HEMOGLOBIN 12.5 GM/dL (11.7-16.9); MCH 28.1 pg (25.7-33.7); MCHC 32.5 g/dl (32.0-35.9); MEAN CELL VOLUME 86.5 fl (80-96); MEAN PLT VOLUME 9.8 fl (7.5-11.1); PLATELET COUNT 176 K/MM3 (134-434); RBC 4.45 M/mm3 (4.00-5.60); RDW 13.9 % (11.9-15.9); WHITE BLOOD COUNT 4.3 K/mm3 (4.0-10.0)
[2019-10-09 17:48] LABS: ALBUMIN 3.4 g/dl (3.4-5.0); BILIRUBIN,TOTAL 0.5 mg/dL (0.2-1); BLOOD UREA NITROGEN 16.3 mg/dL (7-18); CALCIUM 8.9 mg/dL (8.5-10.1); CREATININE 1.1 mg/dL (0.55-1.3); POTASSIUM 3.5 mmol/L (3.5-5.1); TOT PROT 6.8 g/dl (6.4-8.2)
[2019-10-09] MEDS: THIAMINE HCL 100 MG TABLET (FP) PO SCH (22:07)
[2019-10-09] MEDS: IBUPROFEN 400 MG TABLET (FP) PO PRN (22:10)
[2019-10-09] MEDS: MELATONIN 5 MG TABLETS PO PRN (22:12)
[2019-10-10] MEDS ORDERED: METHADONE HCL 5 MG TABLET (FOR DETOX USE ONLY) ONE (09:51)
[2019-10-10] MEDS ORDERED: METHADONE HCL 10 MG TABLET (FOR DETOX USE ONLY) ONE (09:51)
[2019-10-10] MEDS ORDERED: METHADONE (DETOX) 20 MG, METHADONE (DETOX) 5 MG PO ONE (10:00)
[2019-10-10] MEDS: PRENATAL VITAMINS W/ FOLIC ACID TABLET (FP) PO SCH (10:12)
[2019-10-10] MEDS: NICOTINE 14 MG/24 HOURS TOPICAL PATCH TD SCH (10:13)
[2019-10-10] MEDS: IBUPROFEN 400 MG TABLET (FP) PO PRN (10:19)
--- NOTE | 2019-10-10 11:21 | PN ---
BHS COWS - Scale Resting Pulse: 0= [place] 80 or Below Sweatin= Chills/Flushing Restless Observation: 0= Sits Still Pupil Size: 1= Pupils >than Normal Bone or Joint Aches: 2= Severe Diffuse Aches Runny Nose/ Eye Tearin= Nasal Congestion GI Upset > 30mins: 1= Stomach Cramp Tremor Observation of Outstretched Hands: 1= Tremor [place], Not Seen Yawning Observation: 0= None Anxiety or Irritability: 2=Irritable/Anxious Goose Flesh Skin: 3=Piloerection COWS Score: 12 BHS Progress Note (SOAP) Subjective: 59 years old male admitted on 10/09/19 for opiate withdrawal sx management treating with methadone detox regiment requests dental adhesive encourage to provide dental adhesive reports history of gerd discontinue motrin begin pepcid 20mg po bid requests tylenal I II and III discussed the risks of addiction with opiate based medication patient accepts regular tylenal prn for pain Objective: 10/10/19 11:27 Vital Signs Temperature 97.2 F L 10/10/19 08:30 Pulse Rate 54 L 10/10/19 08:30 Respiratory Rate 18 10/10/19 08:30 Blood Pressure 134/73 10/10/19 08:30 O2 Sat by Pulse Oximetry (%) Laboratory Last Values WBC 4.3 K/mm3 (4.0-10.0) 10/09/19 12:15 RBC 4.45 M/mm3 (4.00-5.60) 10/09/19 12:15 Hgb 12.5 GM/dL (11.7-16.9) 10/09/19 12:15 Hct 38.5 % (35.4-49) 10/09/19 12:15 MCV 86.5 fl (80-96) 10/09/19 12:15 MCH 28.1 pg (25.7-33.7) 10/09/19 12:15 MCHC 32.5 g/dl (32.0-35.9) 10/09/19 12:15 RDW 13.9 % (11.9-15.9) 10/09/19 12:15 Plt Count 176 K/MM3 (134-434) 10/09/19 12:15 MPV 9.8 fl (7.5-11.1) D 10/09/19 12:15 Sodium 140 mmol/L (136-145) 10/09/19 12:15 Potassium 3.5 mmol/L (3.5-5.1) 10/09/19 12:15 Chloride 104 mmol/L (98-107) 10/09/19 12:15 Carbon Dioxide 31 mmol/L (21-32) 10/09/19 12:15 Anion Gap 4 MMOL/L (8-16) L 10/09/19 12:15 BUN 16.3 mg/dL (7-18) 10/09/19 12:15 Creatinine 1.1 mg/dL (0.55-1.3) 10/09/19 12:15 Est GFR (CKD-EPI)AfAm 84.12 10/09/19 12:15 Est GFR (CKD-EPI)NonAf 72.58 10/09/19 12:15 Random Glucose 126 mg/dL (74-106) H 10/09/19 12:15 Calcium 8.9 mg/dL (8.5-10.1) 10/09/19 12:15 Total Bilirubin 0.5 mg/dL (0.2-1) 10/09/19 12:15 AST 26 U/L (15-37) 10/09/19 12:15 ALT 30 U/L (13-61) 10/09/19 12:15 Alkaline Phosphatase 48 U/L (45-117) 10/09/19 12:15 Total Protein 6.8 g/dl (6.4-8.2) 10/09/19 12:15 Albumin 3.4 g/dl (3.4-5.0) 10/09/19 12:15 lab noted 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
[2019-10-10] MEDS: FAMOTIDINE 20 MG TABLET PO SCH ×2 (11:57→22:24)
[2019-10-10] MEDS: ACETAMINOPHEN 325 MG TABLET (FP) PO PRN (22:25)
[2019-10-10] MEDS: MELATONIN 5 MG TABLETS PO PRN (22:26)
[2019-10-10] MEDS: THIAMINE HCL 100 MG TABLET (FP) PO SCH (22:26)
[2019-10-11] MEDS: ACETAMINOPHEN 325 MG TABLET (FP) PO PRN ×2 (05:35→17:54)
[2019-10-11] MEDS ORDERED: METHADONE HCL 10 MG TABLET (FOR DETOX USE ONLY) PO ONE (10:00)
[2019-10-11] MEDS: HYDROCHLOROTHIAZIDE 25 MG TABLET (FP) PO SCH (10:31)
[2019-10-11] MEDS: PRENATAL VITAMINS W/ FOLIC ACID TABLET (FP) PO SCH (10:32)
[2019-10-11] MEDS: NICOTINE 14 MG/24 HOURS TOPICAL PATCH TD SCH (10:32)
[2019-10-11] MEDS: FAMOTIDINE 20 MG TABLET PO SCH ×2 (10:32→22:05)
--- NOTE | 2019-10-11 11:47 | PN ---
BHS COWS - Scale Resting Pulse: 0= [place] 80 or Below Sweatin= Chills/Flushing Restless Observation: 0= Sits Still Pupil Size: 1= Pupils >than Normal Bone or Joint Aches: 2= Severe Diffuse Aches (chronic back pain) Runny Nose/ Eye Tearin= Nasal Congestion GI Upset > 30mins: 1= Stomach Cramp Tremor Observation of Outstretched Hands: 1= Tremor [place], Not Seen Yawning Observation: 1= 1-2x During Session Anxiety or Irritability: 1=Feels Anxious/Irritable Goose Flesh Skin: 0=Smooth Skin COWS Score: 9 BHS Progress Note (SOAP) Subjective: 59 years old male admitted on 10/09/19 for opiate withdrawal sx management treating with methadone detox regiment feeling ok ate breakfast in room tolerated food and fluid well c/o chronic back pain requests "strongest" medication for his back pain lidocaine patch eamon gasca encourage the patient seeking pain management clinic and alternative for pain management Objective: 10/11/19 11:49 Vital Signs Temperature 97.9 F 10/11/19 09:07 Pulse Rate 70 10/11/19 09:07 Respiratory Rate 16 10/11/19 09:07 Blood Pressure 135/73 10/11/19 09:07 O2 Sat by Pulse Oximetry (%) Laboratory Last Values WBC 4.3 K/mm3 (4.0-10.0) 10/09/19 12:15 RBC 4.45 M/mm3 (4.00-5.60) 10/09/19 12:15 Hgb 12.5 GM/dL (11.7-16.9) 10/09/19 12:15 Hct 38.5 % (35.4-49) 10/09/19 12:15 MCV 86.5 fl (80-96) 10/09/19 12:15 MCH 28.1 pg (25.7-33.7) 10/09/19 12:15 MCHC 32.5 g/dl (32.0-35.9) 10/09/19 12:15 RDW 13.9 % (11.9-15.9) 10/09/19 12:15 Plt Count 176 K/MM3 (134-434) 10/09/19 12:15 MPV 9.8 fl (7.5-11.1) D 10/09/19 12:15 Sodium 140 mmol/L (136-145) 10/09/19 12:15 Potassium 3.5 mmol/L (3.5-5.1) 10/09/19 12:15 Chloride 104 mmol/L (98-107) 10/09/19 12:15 Carbon Dioxide 31 mmol/L (21-32) 10/09/19 12:15 Anion Gap 4 MMOL/L (8-16) L 10/09/19 12:15 BUN 16.3 mg/dL (7-18) 10/09/19 12:15 Creatinine 1.1 mg/dL (0.55-1.3) 10/09/19 12:15 Est GFR (CKD-EPI)AfAm 84.12 10/09/19 12:15 Est GFR (CKD-EPI)NonAf 72.58 10/09/19 12:15 Random Glucose 126 mg/dL (74-106) H 10/09/19 12:15 Calcium 8.9 mg/dL (8.5-10.1) 10/09/19 12:15 Total Bilirubin 0.5 mg/dL (0.2-1) 10/09/19 12:15 AST 26 U/L (15-37) 10/09/19 12:15 ALT 30 U/L (13-61) 10/09/19 12:15 Alkaline Phosphatase 48 U/L (45-117) 10/09/19 12:15 Total Protein 6.8 g/dl (6.4-8.2) 10/09/19 12:15 Albumin 3.4 g/dl (3.4-5.0) 10/09/19 12:15 RPR Titer Nonreactive (NONREACTIVE) 10/09/19 12:15 lab noted Assessment: 10/11/19 11:49 opiate withdrawal Plan: methadone regiment
[2019-10-11] MEDS: LIDOCAINE 5% TOPICAL PATCH TP SCH (15:50)
[2019-10-11] MEDS: METHYL SALICYLATE/MENTHOL OINT 30 GM TUBE TP SCH ×2 (15:50→22:04)
[2019-10-11] MEDS: THIAMINE HCL 100 MG TABLET (FP) PO SCH (22:03)
[2019-10-11] MEDS: LIDOCAINE PATCH REMOVAL MC SCH (22:04)
[2019-10-11] MEDS: MELATONIN 5 MG TABLETS PO PRN (22:04)
[2019-10-12] MEDS ORDERED: METHADONE HCL 10 MG TABLET (FOR DETOX USE ONLY) ONE (09:18)
[2019-10-12] MEDS ORDERED: METHADONE HCL 5 MG TABLET (FOR DETOX USE ONLY) ONE (09:18)
[2019-10-12] MEDS ORDERED: METHADONE (DETOX) 10 MG, METHADONE (DETOX) 5 MG PO ONE (10:00)
[2019-10-12] MEDS: HYDROCHLOROTHIAZIDE 25 MG TABLET (FP) PO SCH (10:11)
[2019-10-12] MEDS: PRENATAL VITAMINS W/ FOLIC ACID TABLET (FP) PO SCH (10:11)
[2019-10-12] MEDS: NICOTINE 14 MG/24 HOURS TOPICAL PATCH TD SCH (10:12)
[2019-10-12] MEDS: LIDOCAINE 5% TOPICAL PATCH TP SCH (10:14)
[2019-10-12] MEDS: METHYL SALICYLATE/MENTHOL OINT 30 GM TUBE TP SCH ×2 (10:15→21:57)
[2019-10-12] MEDS: FAMOTIDINE 20 MG TABLET PO SCH ×2 (10:15→21:58)
--- NOTE | 2019-10-12 15:07 | PN ---
BHS COWS - Scale Resting Pulse: 0= [place] 80 or Below Sweatin= Chills/Flushing Restless Observation: 0= Sits Still Pupil Size: 0= Normal to Room Light Bone or Joint Aches: 1= Mild Discomfort Runny Nose/ Eye Tearin= Nasal Congestion GI Upset > 30mins: 1= Stomach Cramp Tremor Observation of Outstretched Hands: 2= Slight Tremor Visible Yawning Observation: 0= None Anxiety or Irritability: 1=Feels Anxious/Irritable Goose Flesh Skin: 0=Smooth Skin COWS Score: 7 BHS Progress Note (SOAP) Subjective: 59 years old male admitted on 10/09/19 for opiate withdrawal sx management treating with methadone detox regiment feeling better today good hygiene attending behavior and psychosocial therapies groups and meetings patient determines to maintain sober discussing aftercare with staff Objective: 10/12/19 15:10 Vital Signs Temperature 98.9 F 10/12/19 12:35 Pulse Rate 67 10/12/19 12:35 Respiratory Rate 18 10/12/19 12:35 Blood Pressure 147/74 10/12/19 12:35 O2 Sat by Pulse Oximetry (%) Laboratory Last Values WBC 4.3 K/mm3 (4.0-10.0) 10/09/19 12:15 RBC 4.45 M/mm3 (4.00-5.60) 10/09/19 12:15 Hgb 12.5 GM/dL (11.7-16.9) 10/09/19 12:15 Hct 38.5 % (35.4-49) 10/09/19 12:15 MCV 86.5 fl (80-96) 10/09/19 12:15 MCH 28.1 pg (25.7-33.7) 10/09/19 12:15 MCHC 32.5 g/dl (32.0-35.9) 10/09/19 12:15 RDW 13.9 % (11.9-15.9) 10/09/19 12:15 Plt Count 176 K/MM3 (134-434) 10/09/19 12:15 MPV 9.8 fl (7.5-11.1) D 10/09/19 12:15 Sodium 140 mmol/L (136-145) 10/09/19 12:15 Potassium 3.5 mmol/L (3.5-5.1) 10/09/19 12:15 Chloride 104 mmol/L (98-107) 10/09/19 12:15 Carbon Dioxide 31 mmol/L (21-32) 10/09/19 12:15 Anion Gap 4 MMOL/L (8-16) L 10/09/19 12:15 BUN 16.3 mg/dL (7-18) 10/09/19 12:15 Creatinine 1.1 mg/dL (0.55-1.3) 10/09/19 12:15 Est GFR (CKD-EPI)AfAm 84.12 10/09/19 12:15 Est GFR (CKD-EPI)NonAf 72.58 10/09/19 12:15 Random Glucose 126 mg/dL (74-106) H 10/09/19 12:15 Calcium 8.9 mg/dL (8.5-10.1) 10/09/19 12:15 Total Bilirubin 0.5 mg/dL (0.2-1) 10/09/19 12:15 AST 26 U/L (15-37) 10/09/19 12:15 ALT 30 U/L (13-61) 10/09/19 12:15 Alkaline Phosphatase 48 U/L (45-117) 10/09/19 12:15 Total Protein 6.8 g/dl (6.4-8.2) 10/09/19 12:15 Albumin 3.4 g/dl (3.4-5.0) 10/09/19 12:15 RPR Titer Nonreactive (NONREACTIVE) 10/09/19 12:15 lab noted 10/12/19 15:12 bp elevation resume diltiazem Assessment: 10/12/19 15:12 opiate withdrawal Plan: methadone regiment
[2019-10-12] MEDS: LIDOCAINE PATCH REMOVAL MC SCH (21:57)
[2019-10-12] MEDS: THIAMINE HCL 100 MG TABLET (FP) PO SCH (22:01)
[2019-10-12] MEDS: MELATONIN 5 MG TABLETS PO PRN (22:01)
[2019-10-12] MEDS: ACETAMINOPHEN 325 MG TABLET (FP) PO PRN (22:03)
[2019-10-13] MEDS: dilTIAZem HCL 60 MG TABLET (FP) PO SCH ×2 (01:24→10:46)
[2019-10-13 06:09] VITALS: BP 157/89; PULSE 51; TEMP 96.5
--- NOTE | 2019-10-13 08:05 | DS ---
[facility] Detox Discharge Summary Admission Date: 10/09/19 - History Present History: Opioid Dependence Pertinent Past History: PMH: arthritis in back PSH; left knee replacement, 2 rods left leg - Physical Exam Results Vital Signs: Vital Signs Temperature 96.5 F L 10/13/19 06:08 Pulse Rate 51 L 10/13/19 06:08 Respiratory Rate 18 10/13/19 06:08 Blood Pressure 157/89 10/13/19 06:08 O2 Sat by Pulse Oximetry (%) Pertinent Admission Physical Exam Findings: PE Gnl: WDWN, in no distress Mental status: nl Gait: steady - Treatment Hospital Course: Detox Protocol Followed, Responded well, Rehab Referral Accepted Patient has Accepted a Rehab Referral to: [facility] - Medication Discharge Medications: Ambulatory Orders Multivitamins [Multivit ([facility] Formulary)] 1 tab PO DAILY 08/04/18 Gabapentin 100 mg PO TID #90 capsule 07/27/19 Hydrochlorothiazide [Hctz -] 50 mg PO DAILY #30 tablet 07/27/19 Naproxen 375 mg PO BID #20 tablet 07/27/19 Diltiazem [Cardizem -] 60 mg PO AM 08/07/19 Naloxone HCl [Narcan] 4 mg NS ASDIR PRN #1 spray 08/08/19 - Diagnosis (1) Opioid dependence with withdrawal Current Visit: Yes Status: Acute - AMA Did Patient Leave Against Medical Advice: No
[2019-10-13] MEDS ORDERED: METHADONE HCL 10 MG TABLET (FOR DETOX USE ONLY) PO ONE (10:00)
[2019-10-13] MEDS: METHYL SALICYLATE/MENTHOL OINT 30 GM TUBE TP SCH (10:46)
[2019-10-13] MEDS: HYDROCHLOROTHIAZIDE 25 MG TABLET (FP) PO SCH (10:46)
[2019-10-13] MEDS: LIDOCAINE 5% TOPICAL PATCH TP SCH (10:47)
[2019-10-13] MEDS: FAMOTIDINE 20 MG TABLET PO SCH (10:47)
[2019-10-13] MEDS: NICOTINE 14 MG/24 HOURS TOPICAL PATCH TD SCH (10:47)
[2019-10-13] MEDS: PRENATAL VITAMINS W/ FOLIC ACID TABLET (FP) PO SCH (10:47)
[2019-10-14] MEDS ORDERED: METHADONE HCL 5 MG TABLET (FOR DETOX USE ONLY) PO ONE (06:00)
== END 2019-10-13 08:38 | disposition home or self-care (01) | DRG 773 ==
LOC: YASAS 10:30 → Y3N 12:06
PROVIDERS: ADMIT Allergy & Immunology; ATTEND Allergy & Immunology
PROC: HZ2ZZZZ Detoxification Services for Substance Abuse Treatment (ICD-10-PCS; principal; 2019-10-09)
DX: F11.23 Opioid dependence with withdrawal (principal); F10.230 Alcohol dependence with withdrawal, uncomplicated; F14.20 Cocaine dependence, uncomplicated; F12.20 Cannabis dependence, uncomplicated; F17.210 Nicotine dependence, cigarettes, uncomplicated; F20.9 Schizophrenia, unspecified; I10 Essential (primary) hypertension; M17.12 Unilateral primary osteoarthritis, left knee; M54.89 Other dorsalgia; G89.29 Other chronic pain; Z96.652 Presence of left artificial knee joint
CPT/HCPCS: 36415; 80053; 85027; 86593; J0735

== ENCOUNTER 2020-08-06 13:51 | Inpatient (IN) | payer OTHER ==
[2020-08-06] MEDS ORDERED: ACETAMINOPHEN 325 MG TABLET (FP) PO PRN ×2 (15:47)
[2020-08-06] MEDS ORDERED: METHOCARBAMOL 500 MG TABLET PO PRN (15:47)
[2020-08-06] MEDS ORDERED: ONDANSETRON *ODT* 4 MG TABLET SL PRN (15:47)
[2020-08-06] MEDS ORDERED: NICOTINE POLACRILEX 2 MG GUM BUC PRN (15:47)
[2020-08-06] MEDS ORDERED: MAG HYDROX/AL HYDROX/SIMETH 30 ML UNIT-DOSE CUP PO PRN (15:47)
[2020-08-06] MEDS ORDERED: MAGNESIUM HYDROX 2400MG/30ML ORAL SUSPENSION 30 ML CUP PO PRN (15:47)
[2020-08-06] MEDS ORDERED: BISMUTH SUBSALICYLATE 524 MG/30 ML UD PO PRN (15:47)
[2020-08-06] MEDS ORDERED: MENTHOL/PHENOL 1 EACH UD MM PRN (15:47)
[2020-08-06] MEDS ORDERED: IBUPROFEN 400 MG TABLET (FP) PO PRN (15:47)
[2020-08-06] MEDS ORDERED: MAGNESIUM CITRATE 300 ML BOTTLE PO PRN (15:47)
[2020-08-06 16:00] VITALS: BMI 22.6
[2020-08-06] MEDS ORDERED: METHADONE HCL 10 MG TABLET (FOR DETOX USE ONLY) PO ONE (17:15)
[2020-08-06] MEDS: HYDROCHLOROTHIAZIDE 25 MG TABLET (FP) PO SCH (18:49)
[2020-08-06] MEDS: NICOTINE 14 MG/24 HOURS TOPICAL PATCH TD SCH (18:52)
[2020-08-06] MEDS: dilTIAZem HCL 60 MG TABLET PO SCH (18:52)
[2020-08-06] MEDS: hydrOXYzine PAMOATE 25 MG CAPSULE (FP) PO SCH ×2 (18:53→22:17)
[2020-08-06] MEDS: THIAMINE HCL 100 MG TABLET (FP) PO SCH (22:17)
[2020-08-06] MEDS: MELATONIN 5 MG TABLETS PO SCH (22:17)
[2020-08-06] MEDS: GABAPENTIN 100 MG CAPSULE PO SCH (22:17)
[2020-08-07] MEDS: hydrOXYzine PAMOATE 25 MG CAPSULE (FP) PO SCH ×5 (05:34→22:18)
[2020-08-07] MEDS: GABAPENTIN 100 MG CAPSULE PO SCH ×3 (05:34→22:18)
[2020-08-07] MEDS ORDERED: METHADONE HCL 10 MG TABLET (FOR DETOX USE ONLY) ONE (09:21)
[2020-08-07] MEDS ORDERED: METHADONE HCL 5 MG TABLET (FOR DETOX USE ONLY) ONE (09:21)
[2020-08-07] MEDS ORDERED: METHADONE (DETOX) 20 MG, METHADONE (DETOX) 5 MG PO ONE (10:00)
[2020-08-07] MEDS: HYDROCHLOROTHIAZIDE 25 MG TABLET (FP) PO SCH (10:11)
[2020-08-07] MEDS: PRENATAL VITAMINS W/ FOLIC ACID TABLET (FP) PO SCH (10:11)
[2020-08-07] MEDS: NICOTINE 14 MG/24 HOURS TOPICAL PATCH TD SCH (10:11)
[2020-08-07] MEDS: dilTIAZem HCL 60 MG TABLET PO SCH (11:07)
[2020-08-07 13:05] LABS: HEMATOCRIT 39.1 % (35.4-49); HEMOGLOBIN 12.3 GM/dL (11.7-16.9); MCHC 31.5 g/dl (32.0-35.9); MEAN CELL VOLUME 85.7 fl (80-96); MEAN PLT VOLUME 9.9 fl (7.5-11.1); PLATELET COUNT 179 K/MM3 (134-434); RBC 4.56 M/mm3 (4.00-5.60); RDW 14.7 % (11.9-15.9); WHITE BLOOD COUNT 3.8 K/mm3 (4.0-10.0)
[2020-08-07 13:07] LABS: POTASSIUM 4.1 mmol/L (3.5-5.1)
[2020-08-07 13:10] LABS: CALCIUM 8.3 mg/dL (8.5-10.1)
[2020-08-07 13:11] LABS: ALBUMIN 3.1 g/dl (3.4-5.0); BLOOD UREA NITROGEN 18.8 mg/dL (7-18)
[2020-08-07 13:15] LABS: BILIRUBIN,TOTAL 1.1 mg/dL (0.2-1)
[2020-08-07 13:16] LABS: TOT PROT 6.3 g/dl (6.4-8.2)
[2020-08-07] MEDS: cloNIDine HCL 0.1 MG TABLET PO PRN (13:28)
[2020-08-07] MEDS: MELATONIN 5 MG TABLETS PO SCH (22:18)
[2020-08-07] MEDS: THIAMINE HCL 100 MG TABLET (FP) PO SCH (22:18)
[2020-08-08] MEDS: GABAPENTIN 100 MG CAPSULE PO SCH ×3 (05:23→22:12)
[2020-08-08] MEDS: hydrOXYzine PAMOATE 25 MG CAPSULE (FP) PO SCH (05:23)
[2020-08-08] MEDS: cloNIDine HCL 0.1 MG TABLET PO PRN (07:08)
[2020-08-08] MEDS ORDERED: hydrOXYzine PAMOATE 25 MG CAPSULE (FP) PO PRN (09:52)
[2020-08-08] MEDS ORDERED: diazePAM 5 MG TABLET PO PRN (09:53)
[2020-08-08] MEDS ORDERED: METHADONE HCL 10 MG TABLET (FOR DETOX USE ONLY) PO ONE (10:00)
[2020-08-08] MEDS: PRENATAL VITAMINS W/ FOLIC ACID TABLET (FP) PO SCH (10:22)
[2020-08-08] MEDS: HYDROCHLOROTHIAZIDE 25 MG TABLET (FP) PO SCH (10:22)
[2020-08-08] MEDS: dilTIAZem HCL 60 MG TABLET PO SCH (10:22)
[2020-08-08] MEDS: NICOTINE 14 MG/24 HOURS TOPICAL PATCH TD SCH (10:22)
[2020-08-08] MEDS: MELATONIN 5 MG TABLETS PO SCH (22:12)
[2020-08-08] MEDS: THIAMINE HCL 100 MG TABLET (FP) PO SCH (22:12)
[2020-08-09] MEDS: GABAPENTIN 100 MG CAPSULE PO SCH ×3 (05:46→21:54)
[2020-08-09] MEDS ORDERED: METHADONE HCL 10 MG TABLET (FOR DETOX USE ONLY) ONE (09:22)
[2020-08-09] MEDS ORDERED: METHADONE HCL 5 MG TABLET (FOR DETOX USE ONLY) ONE (09:22)
[2020-08-09] MEDS ORDERED: METHADONE (DETOX) 10 MG, METHADONE (DETOX) 5 MG PO ONE (10:00)
[2020-08-09] MEDS: HYDROCHLOROTHIAZIDE 25 MG TABLET (FP) PO SCH (10:28)
[2020-08-09] MEDS: dilTIAZem HCL 60 MG TABLET PO SCH (10:28)
[2020-08-09] MEDS: NICOTINE 14 MG/24 HOURS TOPICAL PATCH TD SCH (10:28)
[2020-08-09] MEDS: PRENATAL VITAMINS W/ FOLIC ACID TABLET (FP) PO SCH (10:29)
[2020-08-09] MEDS: THIAMINE HCL 100 MG TABLET (FP) PO SCH (21:53)
[2020-08-09] MEDS: MELATONIN 5 MG TABLETS PO SCH (21:55)
[2020-08-10] MEDS: GABAPENTIN 100 MG CAPSULE PO SCH ×3 (05:21→22:05)
[2020-08-10] MEDS ORDERED: METHADONE HCL 10 MG TABLET (FOR DETOX USE ONLY) PO ONE (10:00)
[2020-08-10] MEDS: PRENATAL VITAMINS W/ FOLIC ACID TABLET (FP) PO SCH (10:10)
[2020-08-10] MEDS: HYDROCHLOROTHIAZIDE 25 MG TABLET (FP) PO SCH (10:10)
[2020-08-10] MEDS: NICOTINE 14 MG/24 HOURS TOPICAL PATCH TD SCH (10:11)
[2020-08-10] MEDS: dilTIAZem HCL 60 MG TABLET PO SCH (10:11)
[2020-08-10] MEDS: MELATONIN 5 MG TABLETS PO SCH (22:04)
[2020-08-10] MEDS: THIAMINE HCL 100 MG TABLET (FP) PO SCH (22:05)
[2020-08-11] MEDS ORDERED: METHADONE HCL 5 MG TABLET (FOR DETOX USE ONLY) PO ONE (06:00)
[2020-08-11] MEDS: GABAPENTIN 100 MG CAPSULE PO SCH (06:10)
[2020-08-11 06:17] VITALS: BP 151/88; PULSE 57; TEMP 96.9
[2020-08-11] MEDS: dilTIAZem HCL 60 MG TABLET PO SCH (09:11)
[2020-08-11] MEDS: HYDROCHLOROTHIAZIDE 25 MG TABLET (FP) PO SCH (09:11)
[2020-08-11] MEDS: PRENATAL VITAMINS W/ FOLIC ACID TABLET (FP) PO SCH (09:12)
[2020-08-11] MEDS: NICOTINE 14 MG/24 HOURS TOPICAL PATCH TD SCH (09:12)
== END 2020-08-11 09:15 | disposition home or self-care (01) | DRG 773 ==
LOC: YASAS 13:51 → Y6N 16:40
PROVIDERS: ADMIT Allergy & Immunology; ATTEND Allergy & Immunology
PROC: HZ2ZZZZ Detoxification Services for Substance Abuse Treatment (ICD-10-PCS; principal; 2020-08-06)
DX: F11.23 Opioid dependence with withdrawal (principal); F14.20 Cocaine dependence, uncomplicated; F12.10 Cannabis abuse, uncomplicated; F17.210 Nicotine dependence, cigarettes, uncomplicated; F20.3 Undifferentiated schizophrenia; F19.24 Other psychoactive substance dependence with psychoactive substance-induced mood disorder; F19.282 Other psychoactive substance dependence with psychoactive substance-induced sleep disorder; I10 Essential (primary) hypertension; M54.5 Low back pain; G89.29 Other chronic pain; M17.12 Unilateral primary osteoarthritis, left knee; R06.02 Shortness of breath; Z96.652 Presence of left artificial knee joint; Z56.0 Unemployment, unspecified
CPT/HCPCS: 36415; 80053; 85027; 86780; 93005; 93010; C9803; J0735; U0003

== ENCOUNTER 2020-12-03 16:34 | Inpatient (IN) | payer OTHER ==
[2020-12-03 18:04] VITALS: BMI 22.2
[2020-12-04] MEDS ORDERED: guaiFENesin 200 MG/10 ML 10 ML UNIT-DOSE CUPS PO PRN (02:01)
[2020-12-04] MEDS ORDERED: MAGNESIUM HYDROX 2400MG/30ML ORAL SUSPENSION 30 ML CUP PO PRN (02:01)
[2020-12-04] MEDS ORDERED: ACETAMINOPHEN 325 MG TABLET (FP) PO PRN (02:01)
[2020-12-04] MEDS ORDERED: MAGNESIUM CITRATE 300 ML BOTTLE PO PRN (02:01)
[2020-12-04] MEDS ORDERED: P-EPHED 60MG/TRIPROLIDI 2.5MG TABLET PO PRN (02:01)
[2020-12-04] MEDS ORDERED: IBUPROFEN 400 MG TABLET (FP) PO PRN (02:01)
[2020-12-04] MEDS ORDERED: MAG HYDROX/AL HYDROX/SIMETH 30 ML UNIT-DOSE CUP PO PRN (02:01)
[2020-12-04] MEDS ORDERED: NICOTINE POLACRILEX 2 MG GUM BUC PRN (02:01)
[2020-12-04] MEDS ORDERED: LOPERAMIDE HCL 2 MG CAPSULE PO PRN (02:01)
[2020-12-04] MEDS ORDERED: ASPIRIN 81 MG CHEWABLE TABLETS PO ONE (08:10)
[2020-12-04] MEDS ORDERED: cloNIDine HCL 0.1 MG TABLET PO ONE ×2 (08:10→18:10)
[2020-12-04] MEDS: HYDROCHLOROTHIAZIDE 25 MG TABLET (FP) PO SCH (09:17)
[2020-12-04] MEDS: NICOTINE 14 MG/24 HOURS TOPICAL PATCH TD SCH (09:17)
[2020-12-04] MEDS: PRENATAL VITAMINS W/ FOLIC ACID TABLET (FP) PO SCH (09:18)
[2020-12-04] MEDS ORDERED: NICOTINE 7 MG/24 HOURS TOPICAL PATCH TD SCH (10:00)
[2020-12-04] MEDS: dilTIAZem HCL 30 MG TABLET PO SCH ×2 (10:13→21:18)
[2020-12-04 11:24] VITALS: TEMP 97.3
[2020-12-04] MEDS: GABAPENTIN 100 MG CAPSULE PO SCH ×2 (13:28→21:18)
[2020-12-04] MEDS: ASPIRIN 81 MG CHEWABLE TABLETS PO SCH (18:23)
[2020-12-04] MEDS ORDERED: PT OWN MED DRAWER 7, Y5N ONE (19:47)
[2020-12-04] MEDS ORDERED: MELATONIN 5 MG TABLETS PO SCH (22:00)
[2020-12-04] MEDS ORDERED: THIAMINE HCL 100 MG TABLET (FP) PO SCH (22:00)
[2020-12-05] MEDS: GABAPENTIN 100 MG CAPSULE PO SCH (07:02)
[2020-12-05] MEDS ORDERED: PT OWN MED DRAWER 7, Y5N ONE (07:40)
[2020-12-05] MEDS: PRENATAL VITAMINS W/ FOLIC ACID TABLET (FP) PO SCH (09:05)
[2020-12-05] MEDS: ASPIRIN 81 MG CHEWABLE TABLETS PO SCH (09:05)
[2020-12-05] MEDS: HYDROCHLOROTHIAZIDE 25 MG TABLET (FP) PO SCH (09:05)
[2020-12-05] MEDS: dilTIAZem HCL 30 MG TABLET PO SCH (09:05)
[2020-12-05] MEDS: NICOTINE 14 MG/24 HOURS TOPICAL PATCH TD SCH (09:09)
[2020-12-05 11:56] LABS: PH,URINE 8.5 (5.0-8.0); URINE APPEARANCE CLOUDY; URINE BILIRUBIN NEGATIVE (NEGATIVE); URINE COLOR YELLOW; URINE GLUCOSE (UA) 2+ (NEGATIVE); URINE KETONE NEGATIVE (NEGATIVE); URINE LEUK ESTERASE NEGATIVE (NEGATIVE); URINE NITRITE NEGATIVE (NEGATIVE); URINE PROTEIN NEGATIVE (NEGATIVE)
[2020-12-05 11:57] VITALS: BP 180/108; PULSE 63
[2020-12-05] MEDS ORDERED: BUPRENORPHINE/NALOXONE 8 MG/2 MG FILM PACKET SL SCH (12:30)
== END 2020-12-05 13:03 | disposition left against medical advice (07) | DRG 770 ==
LOC: YASAS 16:34 → Y3E 12-04 02:14
PROVIDERS: ADMIT Allergy & Immunology; ATTEND Allergy & Immunology
PROC: HZ42ZZZ Group Counseling for Substance Abuse Treatment, Cognitive-Behavioral (ICD-10-PCS; principal; 2020-12-04)
DX: F11.20 Opioid dependence, uncomplicated (principal); F14.20 Cocaine dependence, uncomplicated; F17.210 Nicotine dependence, cigarettes, uncomplicated; F19.24 Other psychoactive substance dependence with psychoactive substance-induced mood disorder; F20.3 Undifferentiated schizophrenia; I10 Essential (primary) hypertension; M54.5 Low back pain; G89.29 Other chronic pain; Z96.652 Presence of left artificial knee joint; H26.9 Unspecified cataract; R94.31 Abnormal electrocardiogram [ECG] [EKG]; Z99.89 Dependence on other enabling machines and devices; Z56.0 Unemployment, unspecified
CPT/HCPCS: 81003; 93005; 93010; C9803; J0735; U0003; U0005